=== PATIENT | female | born 1935 | race Caucasian/White ===

== ENCOUNTER → 2019-04-12 | Outpatient (CLI) | payer MEDICARE, OTHER, SELFPAY ==
[2019-04-12 12:14] LABS: Absolute Lymphocyte Count 2.04 X10^3/ul (0.83-4.51); Absolute Neutrophil Count 2.5 X10^3/uL (2.0-7.7); Basophil# 0.03 X10^3/uL; Basophil% 0.5 % (0-1); Eosinophil# 0.31 X10^3/uL; Eosinophils% 5.6 % (0-5); Hematocrit 35.7 % (37-47); Hemoglobin 10.7 g/dl (12.0-15.0); Lymphocyte # 2.04 X10^3/ul (4.0); Lymphocyte % 36.7 % (19-41); Mean Corpuscular Hgb 26.4 pg (27.0-32.0); Mean Corpuscular Volume 87.9 fL (81-99); Mean Platelet Vol. 10.2 fl (6.2-12.0); Monocyte# 0.63 X10^3/uL; Monocyte% 11.3 % (0-10); Neutrophil # 2.53 X10^3/uL (2.7-7.7); Neutrophil % 45.5 % (47-70); Platelet Count 231 K/mm3 (150-450); RBC Distribution Width CV 14.9 % (11.6-14.6); RBC Distribution Width SD 47.2 fl (35.1-43.9); Red Blood Count 4.06 M/mm3 (4.2-5.4); White Blood Count 5.6 K/mm3 (4.4-11.0)
[2019-04-12 12:16] LABS: POSITIVE COUNT NO; POSITIVE DIFFERENTIAL NO; POSITIVE MORPHOLOGY NO
[2019-04-12 12:38] LABS: Hemoglobin A1c 6.7 % (4.2-6.3)
[2019-04-12 12:43] LABS: Vitamin B12 1013 pg/mL (211-911); Vitamin D,25 Hydroxy 16.5 ng/mL (29.95-100.01)
[2019-04-12 12:48] LABS: ALB/GLOB Ratio 0.9 RATIO (0.9-2.4); AST(SGOT) 19 U/L (15-37); Alanine Aminotransfer ALT/SGPT 21 U/L (13-56); Albumin, Serum 3.2 g/dL (3.2-5.0); Alkaline Phosphatase 50 U/L (45-117); Anion Gap 8 (5-15); BUN 13 mg/dL (7-18); BUN/Creat Ratio 14.9 RATIO (10-20); Calcium,Total 9.2 mg/dL (8.5-10.1); Chloride 105 mmol/L (98-107); Cholesterol 224 mg/dL (200); Creatinine, Serum 0.87 mg/dL (0.55-1.02); EST Glomerular Filtration Rate 66 mL/min (>60); Est Glom Filt Rate - Afr Amer 80 mL/min (>60); Ferritin 10 ng/mL (8-252); Free T3 2.6 pg/mL (2.18-3.98); Globulin 3.6 g/dL (2.2-4.2); Glucose 137 mg/dL (74-106); High Density Lipoprotein 74 mg/dL; Iron 34 ug/dL (50-170); Potassium 3.5 mmol/L (3.5-5.1); Protein, Total 6.8 g/dL (6.4-8.2); Sodium Level 141 mmol/L (136-145); T4 Free Direct 0.95 ng/dL (0.76-1.46); Thyroid Stim Hormone (TSH) 2.05 uIU/mL (0.358-3.74); Triglycerides 127 mg/dL; Very Low Density Lipoprotein 25 mg/dL (5-40)
== END | disposition home or self-care (01) ==
LOC: BFHLAB 08:53
PROVIDERS: Family Provider Family Medicine; PCP Family Medicine; Visit Provider Family Medicine
DX: R73.03 Prediabetes (principal); R53.83 Other fatigue; M81.0 Age-related osteoporosis without current pathological fracture; E03.9 Hypothyroidism, unspecified; E78.5 Hyperlipidemia, unspecified; D64.9 Anemia, unspecified; E53.8 Deficiency of other specified B group vitamins; E55.9 Vitamin D deficiency, unspecified
CPT/HCPCS: 36415; 80053; 80061; 82306; 82607; 82728; 83036; 83540; 84439; 84443; 84481; 85025

== ENCOUNTER → 2019-05-18 | Outpatient (CLI) | payer MEDICARE, OTHER, SELFPAY ==
[2019-05-18 12:07] LABS: Absolute Lymphocyte Count 1.82 X10^3/ul (0.83-4.51); Absolute Neutrophil Count 2.6 X10^3/uL (2.0-7.7); Basophil# 0.03 X10^3/uL; Basophil% 0.6 % (0-1); Eosinophil# 0.24 X10^3/uL; Eosinophils% 4.6 % (0-5); Hematocrit 33.3 % (37-47); Hemoglobin 10.3 g/dl (12.0-15.0); Lymphocyte # 1.82 X10^3/ul (4.0); Lymphocyte % 34.7 % (19-41); Mean Corp Hgb Conc 30.9 g/gl (32-36); Mean Corpuscular Hgb 28.3 pg (27.0-32.0); Mean Corpuscular Volume 91.5 fL (81-99); Mean Platelet Vol. 9.9 fl (6.2-12.0); Monocyte# 0.57 X10^3/uL; Monocyte% 10.9 % (0-10); Neutrophil # 2.59 X10^3/uL (2.7-7.7); Neutrophil % 49.2 % (47-70); POSITIVE COUNT NO; POSITIVE DIFFERENTIAL NO; POSITIVE MORPHOLOGY NO; Platelet Count 234 K/mm3 (150-450); RBC Distribution Width CV 19.1 % (11.6-14.6); RBC Distribution Width SD 64.3 fl (35.1-43.9); Red Blood Count 3.64 M/mm3 (4.2-5.4); White Blood Count 5.3 K/mm3 (4.4-11.0)
[2019-05-18 12:20] LABS: Iron 35 ug/dL (50-170)
== END | disposition home or self-care (01) ==
LOC: LAB.FUTURE 08:40
PROVIDERS: Family Provider Family Medicine; PCP Family Medicine; Visit Provider Family Medicine
DX: E61.1 Iron deficiency (principal)
CPT/HCPCS: 36415; 83540; 85025

== ENCOUNTER 2020-05-31 10:13 | Inpatient (IN) | payer MEDICARE, OTHER, SELFPAY ==
[2020-05-31] VITALS (9 sets, daily range): BP systolic 140–153; BP diastolic 68–91; PULSE 60–73; RESP 14–20; TEMP 36.4–36.7; O2SAT 94–100; BMI 37.8; BMI 34.7
--- NOTE | 2020-05-31 10:27 | EKG12_ITS ---
Test Reason : FALL Blood Pressure : / mmHG Vent. Rate : 070 BPM Atrial Rate : 070 BPM P-R Int : 194 ms QRS Dur : 112 ms QT Int : 462 ms P-R-T Axes : 035 -44 060 degrees QTc Int : 498 ms Normal sinus rhythm Left axis deviation Septal infarct , age undetermined Abnormal ECG Confirmed by JULIETTE STOKES ([id number]), greeting card editor ANETTE RODRIGUEZ ([id number]) on 06/02/2020 2:06:32 PM Referred By: AP Confirmed By:JULIETTE STOKES
--- NOTE | 2020-05-31 10:28 | RAD_ITS ---
STUDY: X-RAY - PELVIS AND LEFT HIP REASON FOR EXAM: Female, 84 years old. PATIENT FELL. PAIN IN LEFT HIP TECHNIQUE: 3 views of the pelvis and hip. COMPARISON: None. FINDINGS: There is a non-specific bowel gas pattern. Normal visualized soft tissue structures. Normal bilateral iliac wings, sacroiliac joints and visualized sacrum. Normal bilateral superior and inferior pubic rami. Normal pubic symphysis. Normal bilateral ischial tuberosities. Curvilinear acute fracture left femoral neck extending to the left femoral intertrochanteric bone near the lesser trochanter. Normal acetabulum. Normal hip joint. RAD/HIP, UNI W/ Pelvis 2-3 Views IMPRESSION: Acute curvilinear fracture of the left femoral neck extending down to the left femoral intertrochanteric bone near the lesser trochanter. Electronically Signed: Leobardo Cardoza MD at 11:35 EDT , Service support ,
--- NOTE | 2020-05-31 10:29 | ED.VIS.FALL ---
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 She was walking on the sidewalk in her neighborhood she stubbed her toe over the sidewalk tripped and fell on her left side. She did not have any prodromal symptoms and she did not hit her head or lose consciousness. She is having severe left hip pain. Denies any other areas of injury. She is unable to ambulate. She is not on anticoagulation. Tetanus Immunization: Unknown Prior similar symptoms: No Recent Illness/Hospitalization: No <Yemi Mclean - Last Filed: 05/31/20 12:08> <Dg Olsen - Last Filed: 05/31/20 13:42> Chief Complaint: Fall Past Medical History Past Medical History: - - HTN Lives: With Family Smoking Status: Never smoker Alcohol: None Drugs: None <Yemi Mclean - Last Filed: 05/31/20 12:08> - Family History Maternal Family History: Reports: No pertinent history Paternal Family History: Reports: No pertinent history <Dg Olsen - Last Filed: 05/31/20 13:42> - Allergies and Home Meds Allergies/Adverse Reactions: Allergies Penicillins Allergy (Verified 05/31/20 13:03) Rash Review of Systems All systems negative except as indicated General: Denies: Chills, Fever, Sweats Eyes: Denies: Visual changes - bilaterally, Diplopia ENT: Denies: Rhinorrhea, Sore throat Cardiovascular: Denies: Chest pain, Palpitations Respiratory: Denies: Dyspnea, Cough, Dyspnea on exertion Gastrointestinal: Denies: Abdominal pain, Nausea, Vomiting, Diarrhea, Melena, Hematochezia Genitourinary: Denies: Dysuria, Hematuria, Frequency Musculoskeletal: Reports: Swelling, Extremity Pain. Denies: Back pain Skin: Reports: Abrasions. Denies: Rash, Abscess, Wounds Neurological: Denies: Headache, Weakness, Numbness <Yemi Mclean - Last Filed: 05/31/20 12:08> Physical Exam Vital Signs/Narrative: Vital Signs Temp Pulse Resp BP Pulse Ox 05/31/20 10:14 98.1 F 73 20 H 144/91 H 94 Inital Vital Signs reviewed: Yes General: Well nourished, Well developed Head: Normocephalic, Atraumatic Eyes: Perrl, EOMI ENT: TM's clear, No hemotympanum or drainage, No trauma Neck: Nontender, Full ROM Cardiovascular: Regular rate, Regular rhythm, No murmurs Respiratory: No distress, CTA bilaterally, Chest nontender Abdomen: Soft, Nontender, Nondistended, Normal bowel sounds Back: Nontender Skin: - - Patient has a shortened and rotated left lower extremity. Diffusely tender around the hip. Skin is intact. No redness or bruising. No bony tenderness over the femur or knee tibia/fibula ankle or foot. DP and PT pulse and sensation normal. Neurological: Alert, Oriented x3, Cranial nerves II-XII grossly intact, Normal Strength, Normal Sensation Psychological: Normal affect, Normal Mood <Yemi Mclean - Last Filed: 05/31/20 12:08> Vital Signs/Narrative: Vital Signs Temp Pulse Resp BP Pulse Ox 05/31/20 12:00 63 14 148/68 H 96 05/31/20 10:14 98.1 F 73 20 H 144/91 H 94 <Dg Olsen - Last Filed: 05/31/20 13:42> Diagnostic/Tx/Re-eval Chest X-Ray - ED: 1 View, Read by ED Physician, Read by Radiologist, No Acute Disease - Rhythm Strip Rhythm Strip: Sinus Rhythm Rate: 70 Ectopy: None - EKG Initial EKG Interpretation: Sinus Rhythm, No Acute Injury Pattern Prior: No Prior - Medical Decision Making On arrival patient was taken off of her backboard besides her left hip there were no other injuries noted she had no spinal tenderness of her cervical thoracic or lumbar spine abdomen soft and nontender chest was nontender head and neck no signs of injury. She was treated with morphine. Her laboratory work-up was unremarkable. Chest x-ray is unremarkable as well. He demonstrated that she has an intertrochanteric left hip fracture. I spoke with , commended admission to medicine, obtain a CT scan of her hip, and will be n.p.o. after midnight. I spoke with the hospitalist who agreed to admit onto hospitalist service. Patient was given a second dose of morphine for pain. I advised her and her family of findings and they are agreeable with our plan of care and she is hemodynamically stable. <Yemi Mclean - Last Filed: 05/31/20 12:08> - Medical Decision Making Patient appears well nontoxic. Seen and evaluated independently with physician's life science research assistant. Evidence of hip fracture on x-ray. Strong palpable pulses with compressible compartments. Sensation intact. Patient was given pain medication. Spoke with orthopedic surgeon on-call who will accept the patient to her service. Lab work within normal limits. EKG nonischemic. Patient admitted in stable condition. <Dg Olsen - Last Filed: 05/31/20 13:42> ED Disposition <Yemi Mclean - Last Filed: 05/31/20 12:08> <Dg Olsen - Last Filed: 05/31/20 13:42> - Plan for ED Patient: Disposition: Acute Care Hospital [facility] Diagnosis: Fracture of femoral neck, left, HTN (hypertension)
[2020-05-31] MEDS: Ondansetron 4 MG/2 ML Vial IV (10:32)
[2020-05-31] MEDS: Morphine 4 MG/ML Syringe IV ×2 (10:33→12:07)
--- NOTE | 2020-05-31 10:50 | RAD_ITS ---
STUDY: X-RAY CHEST REASON FOR EXAM: Female, 84 years old. PATIENT FELL. PAIN IN LEFT HIP. TECHNIQUE: AP portable view. COMPARISON: 06/14/2016. FINDINGS: Pulmonary hypoinflation. Calcified granuloma in the left upper lobe. No suspicious infiltrates. There is no demonstrated pleural abnormality. Normal size heart. Calcified nodes in both bryant. Mediastinal widening is most likely from supine portable technique with limited inspiratory effort. Normal visualized pulmonary arteries. Mild atherosclerotic calcifications along the thoracic aorta. Normal visualized thoracic spine. Normal visualized ribs, clavicles, and shoulders. There is no demonstrated abnormality of the visualized soft tissue structures of the upper abdomen. RAD/Chest 1 View (Portable) IMPRESSION: 1. No acute cardiopulmonary pathology given the limited inspiratory effort. 2. No significant interval change when compared to 06/14/2016. Electronically Signed: Leobardo Cardoza MD at 11:26 EDT , Service support ,
[2020-05-31 10:51] LABS: Absolute Lymphocyte Count 2.63 X10^3/uL (0.83-4.51); Absolute Neutrophil Count 3.5 X10^3/uL (2.0-7.7); Basophil# 0.06 X10^3/uL; Basophil% 0.9 % (0-1); Eosinophil# 0.24 X10^3/uL; Eosinophils% 3.4 % (0-5); Hematocrit 39.8 % (37-47); Hemoglobin 12.7 g/dL (12.0-15.0); Lymphocyte # 2.63 X10^3/ul (4.0); Lymphocyte % 37.7 % (19-41); Mean Corp Hgb Conc 31.9 g/dL (32-36); Mean Corpuscular Hgb 30.8 pg (27.0-32.0); Mean Corpuscular Volume 96.6 fL (81-99); Mean Platelet Vol. 10.6 fl (6.2-12.0); Monocyte# 0.55 X10^3/uL; Monocyte% 7.9 % (0-10); NRBC Flagged by Analyzer 0 % (0-5); Neutrophil # 3.46 X10^3/uL (2.7-7.7); Neutrophil % 49.5 % (47-70); Platelet Count 205 K/mm3 (150-450); RBC Distribution Width CV 13.6 % (11.6-14.6); RBC Distribution Width SD 47.8 fl (35.1-43.9); Red Blood Count 4.12 M/mm3 (4.2-5.4)
[2020-05-31 11:04] LABS: Prothrombin Time (Protime)PT. 12.8 SECONDS (11.7-14.9)
[2020-05-31 11:05] LABS: Partial Thromboplast Time 27.6 Seconds (24.1-36.2)
[2020-05-31 11:07] LABS: Anion Gap 6 (5-15); BUN 12 mg/dL (7-18); BUN/Creat Ratio 13.2 RATIO (10-20); Calcium,Total 9.4 mg/dL (8.5-10.1); Chloride 103 mmol/L (98-107); Creatinine, Serum 0.91 mg/dL (0.55-1.02); EST Glomerular Filtration Rate 63 mL/min (>60); Est Glom Filt Rate - Afr Amer 76 mL/min (>60); Estimated Creatinine Clearance 35.75 ml/min; Glucose 200 mg/dL (74-106); Potassium 3.3 mmol/L (3.5-5.1); Sodium Level 138 mmol/L (136-145)
--- NOTE | 2020-05-31 12:04 | CT_ITS ---
STUDY: CT LEFT HIP WITHOUT CONTRAST REASON FOR EXAM: Female, 84 years old. LT HIP FX RADIATION DOSAGE (If Supplied By Facility): CTDIvol = ( 34.19 ) mGy, DLP = ( 1129.70 ) mGycm TECHNIQUE: Transaxial imaging of the left hip was performed without oral contrast, and without intravenous administration of contrast material. 05/31/2020 Individualized dose optimization techniques were used for this CT. COMPARISON: None. FINDINGS: Castanon catheter decompresses urinary bladder. Normal visualized small intestine. Normal visualized colon. There is no pelvic fluid. There is no pelvic mass lesion or lymphadenopathy. There is atrophy of the uterus. There is diffuse atherosclerotic calcification of the pelvic arteries. Normal abdominal wall. The visualized sacrum and left sacroiliac joint are unremarkable. The visualized left iliac crest is intact. The left femoral head is normally aligned with the acetabulum. There is a transverse fracture of the left subcapital femoral neck with widening of the fracture line (3 mm) along the medial margin (image 38 series 602). A longitudinal fracture component extends inferiorly to just above the base of the lesser trochanter (image 37 series 602). The remainder of the left femur is intact. CT/Extremity Lower without Contra IMPRESSION: 1. Left femoral neck fracture, as above. Electronically Signed: John Franco MD ([place]) at 12:58 EDT , Service support ,
[2020-05-31] MEDS: Diphth,Pertuss(Acell),Tet Vac 0.5 ML Vial IM (12:08)
--- NOTE | 2020-05-31 12:23 | PCM.HP.STD ---
Problem List (1) Hyperglycemia Status: Acute (2) Congestive heart failure (CHF) Status: Chronic (3) Gout Status: Chronic (4) Fracture of femoral neck, left Status: Acute (5) HTN (hypertension) Status: Chronic History of Present Illness Date of Admission: 05/31/20 Chief Complaint: Fall, left hip pain. The patient is a 84 year old F with past medical history as mentioned above presented to the emergency room because of fall and left hip pain. This morning, she was working in her garden, turned around, lost her balance and she fell on her left side. Immediately, she started having left hip pain, sharp pain, 8 out of 10 in severity, aggravated by any movement, no relieving factor and no associated symptoms. She denied dizziness, lightheadedness, loss of consciousness or head trauma. In the emergency department, her vital signs are stable. Her routine blood work was remarkable for potassium of 3.3 and blood glucose of 200. EKG revealed normal sinus rhythm, normal AK table, normal QRS, normal QTC and no evidence of ischemic changes or cardiac arrhythmias. Chest x-ray revealed cardiomegaly, no acute findings. X-ray of the pelvis and left hip revealed acute fracture of the left femoral neck extending down to the left femoral intertrochanteric bone. She is being admitted for acute traumatic left femoral neck fracture for surgical repair. Past Medical History Past Medical History (Chronic Problems): Chronic Problems Congestive heart failure (CHF) (Chronic) Gout (Chronic) HTN (hypertension) (Chronic) Allergies No Known Allergies Allergy (Verified 05/31/20 10:28) Home Medications: Ambulatory Orders Medication Instructions Recorded Aspirin [Aspirin, Baby] 81 mg PO DAILY@0800 05/31/20 Atenolol [Tenormin] 50 mg PO BID 05/31/20 Lisinopril/Hydrochlorothiazide 1 tab PO DAILY 05/31/20 [Lisinopril-Hctz 20-12.5 mg Tab] Surgical History: - - Back surgery. Psychiatric History: No pertinent psych hx OCCUPATIONAL HEALTH SPECIALIST History: No pertinent OCCUPATIONAL HEALTH SPECIALIST history Lives: Alone Smoking Status: Never smoker Alcohol: None Drugs: None - *Family History Maternal History Items: No pertinent history Paternal History Items: No pertinent history Review of Systems Constitutional: Denies: Anorexia, Chills, Fever, Weakness Eyes: Denies: Blurred vision, Double vision, Drainage HEENT: Denies: Difficulty Hearing, Ear Pain, Eye Pain, Nasal Congestion, Sore Throat Cardiovascular: Denies: Chest Pain, Chest Pressure, Heaviness, Light Headedness, Palpitations, Syncope Respiratory: Denies: Cough, Pleuritic Pain, Shortness of Breath, Sputum production, Wheezing Gastrointestinal: Denies: Abdominal Pain, Constipation, Diarrhea, Nausea, Vomiting Genitourinary: Denies: Dysuria, Frequency, Hematuria Musculoskeletal: Reports: Joint Pain. Denies: Arm Pain, Back Pain, Foot Pain Skin: Denies: Dryness, Rash Neurological: Denies: Balance problems, Double vision, Change in Speech, Slurred speech, Confusion, Headaches, Incoordination, Numbness Psychiatric: Denies: Anxiety, Depression Endocrine: Denies: Change in Body Habitus, Polydipsia, Polyuria VTE Information - Inpt Only VTE Present on Admission: No VTE Mechan Device Prophylaxis: None VTE Pharm Prophylaxis ordered?: Yes Patient Problems: Active and Suspected Problems Hyperglycemia (Acute) Fracture of femoral neck, left (Acute) - Physical Exam Vitals/I&O's: Vital Signs Temp Pulse Resp BP Pulse Ox 98.1 F 61 20 H 150/85 H 94 05/31/20 12:17 05/31/20 12:17 05/31/20 12:17 05/31/20 12:17 05/31/20 12:17 Oxygen Flow Rate (L/min) 2 Oxygen Delivery Method Nasal Cannula Weight: 207 lb 0.225 oz Body Mass Index (BMI) 37.8 General: Alert, Oriented x3, Cooperative, No apparent distress HEENT: Atraumatic, PERRLA, EOMI, Normocephalic Oral: Moist Mucosa, No Gingival or Mucosal Lesions/ Ulcerations Neck: Supple, No JVD, Negative Carotid Bruits, Trachea Midline, Thyroid Normal Size and Texture Lungs: Clear to auscultation, No wheeze, No rales, Diminished Cardiovascular: Regular rate, Regular Rhythm, Normal S1, Normal S2, PMI Normal Abdomen: Bowel Sounds Present, Soft, Non Tender, Non-Distended, No Hepato-splenomegaly, Obese Extremities: No clubbing, No cyanosis, No edema Skin: No rashes, No breakdown Lymphatic: No Cervical, Supraclavicular, or Inguinal Adenopathy Neurological: Cranial nerves II-XII grossly intact, Motor Exam 5/5 strength throughout Psych/Mental Status: Normal Affect, Appropriate, Alert and oriented to time, place, person, mood and affect Laboratory Results 05/31/20 10:15: WBC 7.0, RBC 4.12 L, Hgb 12.7, Hct 39.8, MCV 96.6, MCH 30.8, MCHC 31.9 L, RDW Std Deviation 47.8 H, RDW Coeff of Do 13.6, Plt Count 205, MPV 10.6, Immature Gran % (Auto) 0.600, Neut % (Auto) 49.5, Lymph % (Auto) 37.7, Wood % (Auto) 7.9, Eos % (Auto) 3.4, Baso % (Auto) 0.9, Absolute Neuts (auto) 3.5, Absolute Lymphs (auto) 2.63, Nucleated RBC % 0 05/31/20 10:15: PT 12.8, INR 1.0, APTT 27.6 05/31/20 10:15: Sodium 138, Potassium 3.3 L, Chloride 103, Carbon Dioxide 29.0, Anion Gap 6, BUN 12, Creatinine 0.91, Estim Creat Clear Calc 35.75, Est GFR (MDRD) Af Amer 76, Est GFR (MDRD) Non-Af 63, BUN/Creatinine Ratio 13.2, Glucose 200 H, Calcium 9.4 05/31/20 10:40: Blood Type O POSITIVE, Antibody Screen NEGATIVE 05/31/20 12:00: COVID-19 ([facility]) Pending Clinical Impression(s) from Imaging Studies Hip/Pelvis X-Ray 05/31/20 10:28 IMPRESSION: Acute curvilinear fracture of the left femoral neck extending down to the left femoral intertrochanteric bone near the lesser trochanter. Electronically Signed: Leobardo Cardoza MD at 11:35 EDT , Service support , Chest X-Ray 05/31/20 10:50 IMPRESSION: 1. No acute cardiopulmonary pathology given the limited inspiratory effort. 2. No significant interval change when compared to 06/14/2016. Electronically Signed: Leobardo Cardoza MD at 11:26 EDT , Service support , Assessment/Plan All Active Problems Hyperglycemia (Acute) Fracture of femoral neck, left (Acute) This is an 84 years old female patient presented to the emergency room because of fall followed by left hip pain, found to have acute traumatic left femoral neck fracture and she is being admitted for treatment. #1 acute traumatic left femoral neck fracture: Due to mechanical fall. No prodromal symptoms. X-ray of the pelvis and left hip reviewed. Plan: Admit to [facility] floor, telemetry, complete bedrest, IV morphine PRN for pain, OxyIR PRN for pain, gentle IV fluids for hydration, orthopedic surgery consult, insert Castanon catheter, input output chart, repeat CBC and BMP after tomorrow morning, PT OT evaluation and treatment when appropriate. #2 preoperative evaluation: This is an 84 years old female patient with past medical history as above, lives alone, able to do her daily activities without significant restrictions, denied exertional shortness of breath or chest pain. She mentioned that she does have a history of congestive heart failure but she has not followed with cardiology. Her EKG reviewed as above the chest x-ray showed cardiomegaly, no acute findings. Routine blood work reviewed. Based on her age, past medical history, serum creatinine and functional status, her estimated risk for perioperative myocardial infarction or cardiac arrest is 0.23%. Based on ACS NSQIP surgical risk is critical, this patient's estimated risk for serious complications is below average. Patient had a history of congestive heart failure which is compensated and stable at this time, I think we need to do an echocardiogram before surgery. Plan: 2D echocardiogram, we can proceed with surgery after 2D echocardiogram results. #3 hyperglycemia: Without history of diabetes. Blood sugar admission was 200 mg/dL. Plan: Accu-Cheks q. before meals at bedtime, hemoglobin A1c, insulin sliding scale. #4 hypertension: Blood pressure stable, continue atenolol, lisinopril and HCTZ. #5 gout: Stable, no complaints. She is not on any treatment. #6 history of congestive heart failure: Clinically stable, compensated. Patient mentioned that she has been taking Lasix in addition to lisinopril and atenolol. Chest x-ray revealed cardiomegaly, no acute CHF. Plan for 2D echocardiogram as above, continue home medications. #7 DVT prophylaxis, subcu Lovenox. This note was generated with [employer] dictation software. It may contain incorrect words, spelling, and punctuation that were not noted in checking the note before signing. Inpatient E&M: 18900 Init Hosp L3
--- NOTE | 2020-05-31 13:22 | ECHOD_ITS ---
Reason For Study: Pre-op clearance Procedure This was a 2D Doppler, Color Flow transthoracic echocardiogram. Patient scanned supine due to hip fracture. Exam performed portable in patient room. Left Ventricle Normal size and thickness. The estimated ejection fraction is 65 %. Stage 1 diastolic dysfunction. No regional wall motion abnormalities noted. Right Ventricle Normal size and thickness. Normal systolic function. Atria Normal left atrium. Normal right atrium. Normal atrial septum. Mitral Valve Mild diffuse mitral valve thickening. Severe mitral annular calcification extending into the posterior leaflet. Mild (1+) mitral valve insufficiency. Tricuspid Valve Normal tricuspid valve. Mild (1+) tricuspid valve insufficiency. Right ventricular systolic pressure estimated to be 40 mmHg. Mild pulmonary hypertension. Aortic Valve Trisinus/trileaflet aortic valve. Mild focal aortic valve thickening. Mild aortic stenosis. Pulmonic Valve Normal pulmonic valve. Trivial pulmonic valve insufficiency. Great Vessels Normal aortic root. Normal arch. Normal inferior vena cava. Inferior vena cava collapse with sniff. Pericardium/Pleural No pericardial effusion. MMode/2D Measurements & Calculations LVIDd: 4.5 cm IVSd: 0.98 cm Ao root diam: 3.6 cm LVIDs: 2.5 cm LVPWd: 1.2 cm RVDd: 3.5 cm FS: 43.9 % LAV(MOD-bp): 54.2 ml LA A4 area: 17.4 cm2 LA dimension(2D): 4.1 cm LAV(MOD-bp) Indexed: 29.1 ml/m2 LAV(MOD-sp2): 55.3 ml LAV(MOD-sp4): 47.8 ml RA A4 area: 14.7 cm2 Doppler Measurements & Calculations MV E max girish: 113.9 cm/sec Lat Peak E' Girish: 6.5 cm/sec Med Peak E' Girish: 4.6 cm/sec MV A max girish: 129.0 cm/sec E/E' lat: 17.4 E/E' med: 24.8 MV E/A: 0.88 Ao V2 max: 188.6 cm/sec LV V1 max: 133.1 cm/sec PA V2 max: 96.5 cm/sec Ao max P.2 mmHg LV V1 max P.1 mmHg TR max girish: 281.1 cm/sec TR max P.7 mmHg Interpretation Summary The estimated ejection fraction is 65 %. Stage 1 diastolic dysfunction. Mild (1+) mitral valve insufficiency. Mild (1+) tricuspid valve insufficiency. Right ventricular systolic pressure estimated to be 40 mmHg. Mild pulmonary hypertension. Mild aortic stenosis. Compared to echo report dated 05/12/2008, LV function has remained the same, but RVSP is increased from 25 to 40 mmHg. Ordering Physician: Katie Burk Performed By: Mis Mendoza RDCS
--- NOTE | 2020-05-31 13:27 | NURSING ---
notified dr bach of pt admit
[2020-05-31 13:31] LABS: Probe Check PASS; Specimen Processing Control PASS
[2020-05-31 13:55] LABS: Hemoglobin A1c 7.3 % (3.8-5.6)
[2020-05-31] MEDS: 0.9% Normal Saline 1,000 ML 75 ML IV (13:56)
--- NOTE | 2020-05-31 14:12 | NURSING ---
notified dr greene that eco can not be done today. called nursing supervisor public health nursing and he stated that eco could be done if dr greene would call cardiology general operations agent and see if cardiology could have eco done. dr ledesma notified that to have eco done before surgery radio electrician general operations agent would have to be called. dr greene stated he would not call cardiology general operations agent to notify dr bach and is she wanted eco done she would have to call cardiology. dr haywood notified and she was going to call cardiology and dr greene about having eco done.
[2020-05-31] MEDS: Morphine 2 MG/ML Syringe IV (15:55)
[2020-05-31] MEDS: Insulin Lispro 100 UNIT/ML INSULN.PEN SC ×2 (16:02→22:06)
[2020-05-31 16:16] LABS: Bedside Glucose 155 mg/dL (70-110)
--- NOTE | 2020-05-31 21:19 | CON.PCM_ITS ---
Problem List (1) Fracture of femoral neck, left Status: Acute Qualifiers: Encounter type: initial encounter Fracture type: closed Qualified Code(s): S72.002A - Fracture of unspecified part of neck of left femur, initial encounter for closed fracture Reason for Consult Date of Consultation: 05/31/20 Reason for Consultation: left hip pain History of Present Illness: The patient is a 84 year old FPatient stated that she is ambulator at home without assistance and was trimming michael bushes and fell onto her left hip. Brought to ER where xrays taken show nondisplaced left femoral neck fx. Ortho consulted and noted frx line extending to lesser and CT ordered. Denies shortness of breath chest pain fevers chills or other constitutional symptoms. Denies antecedent sob, dizziness, light headed, etc- missed her footing and fell. States pain localized to her left hip and left wrist. Patient states she had a bone density scan which shows she is osteoporotic. Please see chart for medical comorbidities including hypertension a history of CHF. Patient states she has not seen a doctor in years and takes care of herself.[] Past Medical History Past Medical History (Chronic Problems): Chronic Problems Congestive heart failure (CHF) (Chronic) Gout (Chronic) HTN (hypertension) (Chronic) Allergies Penicillins Allergy (Verified 05/31/20 13:03) Rash Home Medications: Ambulatory Orders Medication Instructions Recorded Allopurinol 300 mg PO DAILY 05/31/20 Aspirin [Aspirin, Baby] 81 mg PO DAILY@0800 05/31/20 Atenolol [Tenormin] 50 mg PO BID 05/31/20 Lisinopril/Hydrochlorothiazide 1 tab PO DAILY 05/31/20 [Lisinopril-Hctz 20-12.5 mg Tab] Apixaban [Eliquis] 5 mg PO BID #90 tab 06/04/20 Oxycodone [Oxyir] 5 mg PO Q6H PRN PRN 5 Days #20 tab 06/04/20 Senna/Docusate Sodium [Senokot-S] 2 tab PO BID PRN PRN #1 tab 06/04/20 metFORMIN HCl [Glucophage] 500 mg PO BIDCM #90 tab 06/04/20 Surgical History: - - Back surgery. Psychiatric History: No pertinent psych hx [employer]UDIES History: No pertinent [employer] history Lives: Alone Smoking Status: Never smoker Alcohol: None Drugs: None - *Family History Maternal History Items: No pertinent history Paternal History Items: No pertinent history Review of Systems Constitutional: Denies: Chills, Fever, Weight Change HEENT: Denies: Head Aches, Sinus Congestion, Sinus Drainage Cardiovascular: Denies: Chest Pain, Palpitations Respiratory: Denies: Cough, Shortness of breath at rest, Sputum production Gastrointestinal: Denies: Abdominal Pain, Nausea, Vomiting Genitourinary: Denies: Dysuria Musculoskeletal: Reports: Joint Pain, Joint Tenderness Skin: Denies: Rash, Wounds Neurological: Denies: Numbness, Tingling, Focal weakness Psychiatric: Denies: Anxiety, Depression, Homicidal Ideations, Suicidal Ideations Hematologic/ Lymphatic: Denies: Easy Bruising, Easy Bleeding - Physical Exam Vitals/I&O's: Vital Signs Temp Pulse Resp BP Pulse Ox 97.7 F L 60 18 140/70 H 99 05/31/20 16:04 05/31/20 17:46 05/31/20 18:56 05/31/20 16:04 05/31/20 18:56 Oxygen Flow Rate (L/min) 2.5 Oxygen Delivery Method Nasal Cannula Weight: 190 lb 0.225 oz Body Mass Index (BMI) 34.7 Intake and Output for Last 24 Hours 05/29/20 05/30/20 05/31/20 23:59 23:59 23:59 Intake Total 100 / 100 Output Total 500 / 500 Balance -400 / -400 General: Alert, Oriented x3, Cooperative HEENT: Atraumatic, PERRLA, EOMI, Normocephalic Neck: Supple, No JVD, Negative Carotid Bruits Lungs: Clear to auscultation, Normal air movement Cardiovascular: Regular rate, No murmurs Abdomen: Bowel Sounds Present, Soft, Non Tender Extremities: No edema, Capillary Refill Less than 3 Seconds Skin: No rashes, No breakdown Musculoskeletal: Tenderness - Left hip tender to palpation, bilateral lower extremities sensation grossly intact active range of motion passive range of motion ankle intact, sensation grossly intact, compartment soft, negative Homans, secondary survey negative, Neurological: Cranial nerves II-XII grossly intact Psych/Mental Status: Normal Affect, Appropriate Laboratory Results 05/31/20 10:15: WBC 7.0, RBC 4.12 L, Hgb 12.7, Hct 39.8, MCV 96.6, MCH 30.8, MCHC 31.9 L, RDW Std Deviation 47.8 H, RDW Coeff of Do 13.6, Plt Count 205, MPV 10.6, Immature Gran % (Auto) 0.600, Neut % (Auto) 49.5, Lymph % (Auto) 37.7, [place] % (Auto) 7.9, Eos % (Auto) 3.4, Baso % (Auto) 0.9, Absolute Neuts (auto) 3.5, Absolute Lymphs (auto) 2.63, Nucleated RBC % 0 05/31/20 10:15: PT 12.8, INR 1.0, APTT 27.6 05/31/20 10:15: Sodium 138, Potassium 3.3 L, Chloride 103, Carbon Dioxide 29.0, Anion Gap 6, BUN 12, Creatinine 0.91, Estim Creat Clear Calc 35.75, Est GFR (MDRD) Af Amer 76, Est GFR (MDRD) Non-Af 63, BUN/Creatinine Ratio 13.2, Glucose 200 H, Calcium 9.4 05/31/20 10:15: Hemoglobin A1c 7.3 H 05/31/20 10:40: Blood Type O POSITIVE, Antibody Screen NEGATIVE 05/31/20 12:00: COVID-19 ([facility]) Negative 05/31/20 16:00: POC Glucose 155 H Current Medications Acetaminophen (Tylenol) 650 mg PO Q6H PRN PRN PRN Reason: Pain Score 1-10/Temp > 100.7 F Aspirin (Aspirin, Baby) 81 mg PO DAILY@0800 [facility] Atenolol (Tenormin (Beta Geovany)) 50 mg PO BID [facility] Dextrose (D50w Syringe) 0 gm IV X1 PRN; Protocol PRN Reason: Hypoglycemia Enoxaparin Sodium (Lovenox) 40 mg SC DAILY@0600 [facility] Glucagon () 1 mg IM .X1 PRN PRN Reason: Hypoglycemia Hydrochlorothiazide () 12.5 mg PO DAILY [facility] Sodium Chloride () 250 mls @ 15 mls/hr IV .[id number] PRN PRN Reason: Saline Flush Sodium Chloride () 250 mls @ 15 mls/hr IV .[id number] PRN PRN Reason: Additional IVPB Infusion Sodium Chloride () 1,000 mls @ 75 mls/hr IV .[id number] [facility] Last Admin: 05/31/20 13:56 Dose: 75 mls/hr Documented by: Insulin Human Lispro (Humalog Kwikpen (Bkc)) 0 unit SC ACHS [facility]; Protocol Last Admin: 05/31/20 16:02 Dose: 1 units Documented by: Lisinopril (Zestril) 20 mg PO DAILY [facility] Morphine Sulfate () 2 mg IV Q3H PRN PRN PRN Reason: Pain Score 6-10/10 Last Admin: 05/31/20 15:55 Dose: 2 mg Documented by: Ondansetron HCl (Zofran) 4 mg IV Q8H PRN PRN PRN Reason: NAUSEA/VOMITING Oxycodone HCl (Oxyir) 5 mg PO Q4H PRN PRN PRN Reason: Pain Score 4-5/10 Senna/Docusate Sodium (Senokot-S, Raeann-Colace) 2 tablet PO BID PRN PRN PRN Reason: Constipation Sodium Chloride () 10 - 40 ml IV UD PRN PRN Reason: SALINE FLUSH Zolpidem Tartrate (Ambien (Generic)) 5 mg PO QHS PRN PRN PRN Reason: INSOMNIA Assessment/Plan All Active Problems Type 2 diabetes mellitus (Acute) Fracture of femoral neck, left (Acute) Patient has a nondisplaced femoral neck with vertical split to lesser X-rays and CT confirmed femoral neck fracture nondisplaced with vertical fracture to the lesser trochanter Patient slated for a DHS of the left hip tomorrow, repair as indicated Risk benefits and alternatives were discussed with patient. Risk including but not limited to blood loss, blood clot, infection, neurovascular, failure procedure, loss of life and loss of limb. Patient is aware would like proceed with left hip dynamic hip screw fixation. All questions answered. Patient in agreement of plan. Toradol okay ancef 2g octor, aware of pcn allergy Power of vending machine refiller are on their way /they are not present today Cardiology consulted Hospitalist evaluated patient stated 2D echo prior to surgery , hence cardiology consult Patient is slated to go on Tuesday at 1pm pending tire classifier evaluation Call with increased pain numbness tingling further issues arise or If concerns about patient or disposition change [phone] This note was generated with [employer] software. It may contain incorrect words, spelling, and punctuation that were not noted in checking the note before signing.
[2020-05-31] MEDS: oxyCODONE 5 MG Tablet PO (22:02)
[2020-05-31] MEDS: Acetaminophen 325 MG Tablet 650 MG PO (22:02)
[2020-05-31] MEDS: Atenolol 50 MG Tablet PO (22:02)
[2020-05-31 22:21] LABS: Bedside Glucose 159 mg/dL (70-110)
--- NOTE | 2020-05-31 22:34 | NURSING ---
Per patient's request called son Patric to update status of surgery after Dr. Lozada saw her. He will be here in the morning.
[2020-06-01] VITALS (16 sets, daily range): BP systolic 132–163; BP diastolic 70–100; PULSE 62–124; RESP 16–20; TEMP 36.2–36.7; O2SAT 93–100; BMI 34.7
[2020-06-01] MEDS: Morphine 2 MG/ML Syringe IV ×2 (02:21→07:02)
[2020-06-01] MEDS: 0.9% Saline Lock 10 ML Syringe IV ×3 (02:21→20:17)
[2020-06-01] MEDS: 0.9% Normal Saline 1,000 ML 75 ML IV ×2 (02:23→20:19)
[2020-06-01 07:10] LABS: Bedside Glucose 184 mg/dL (70-110)
[2020-06-01 07:17] LABS: Anion Gap 6 (5-15); BUN 9 mg/dL (7-18); BUN/Creat Ratio 14.4 RATIO (10-20); Calcium,Total 8.5 mg/dL (8.5-10.1); Chloride 103 mmol/L (98-107); Creatinine, Serum 0.63 mg/dL (0.55-1.02); EST Glomerular Filtration Rate 96 mL/min (>60); Est Glom Filt Rate - Afr Amer 116 mL/min (>60); Estimated Creatinine Clearance 32.53 ml/min; Glucose 154 mg/dL (74-106); Potassium 3.8 mmol/L (3.5-5.1); Sodium Level 140 mmol/L (136-145)
[2020-06-01] MEDS: hydroCHLOROthiazide 12.5mg 12.5 MG PO (08:02)
[2020-06-01] MEDS: Lisinopril 20 MG Tablet PO (08:02)
[2020-06-01] MEDS: Atenolol 50 MG Tablet PO ×2 (08:03→22:39)
[2020-06-01] MEDS: Aspirin 81 MG TAB.CHEW PO (08:03)
--- NOTE | 2020-06-01 08:20 | PCM.PROGNOTE ---
Patient Problems: Active and Suspected Problems Hyperglycemia (Acute) Fracture of femoral neck, left (Acute) Subjective: Chief complaint: Follow-up after admission for acute traumatic left femoral neck fracture. Patient seen and examined. No acute events overnight. Today, she mentioned her left hip pain is well controlled with IV morphine. Denied any other complaints. Today, she informed me that she saw Dr. Singh for congestive heart failure and on 7 to 8 years ago and she had stress test at that time. Her vital signs are stable. - Physical Exam Vitals/I&O's: Vital Signs Temp Pulse Resp BP Pulse Ox 98.1 F 124 H 18 147/100 H 98 06/01/20 04:30 06/01/20 07:00 06/01/20 04:30 06/01/20 04:30 06/01/20 04:30 Oxygen Flow Rate (L/min) 2 Oxygen Delivery Method Nasal Cannula Weight: 190 lb 0.225 oz Body Mass Index (BMI) 34.7 Intake and Output for Last 24 Hours 05/30/20 05/31/20 06/01/20 23:59 23:59 23:59 Intake Total 100 / 220 1053.75 / 1053.75 Output Total 500 / 775 675 / 675 Balance -400 / -555 378.75 / 378.75 General: Alert, Oriented x3, Cooperative, No apparent distress HEENT: Atraumatic, PERRLA, EOMI, Normocephalic Oral: Moist Mucosa, No Gingival or Mucosal Lesions/ Ulcerations Neck: Supple, No JVD, Negative Carotid Bruits, Trachea Midline, Thyroid Normal Size and Texture Lungs: Clear to auscultation, Normal air movement, No rhonchi, No wheeze, No rales, Diminished Cardiovascular: Regular rate, Regular Rhythm, Normal S1, Normal S2, PMI Normal Abdomen: Bowel Sounds Present, Soft, Non Tender, Non-Distended, No Hepato-splenomegaly, Obese Extremities: No clubbing, No cyanosis, No edema Skin: No rashes, No breakdown Lymphatic: No Cervical, Supraclavicular, or Inguinal Adenopathy Neurological: Cranial nerves II-XII grossly intact, Neuro grossly intact Psych/Mental Status: Normal Affect, Appropriate, Alert and oriented to time, place, person, mood and affect Laboratory Results 05/31/20 10:15: WBC 7.0, RBC 4.12 L, Hgb 12.7, Hct 39.8, MCV 96.6, MCH 30.8, MCHC 31.9 L, RDW Std Deviation 47.8 H, RDW Coeff of Do 13.6, Plt Count 205, MPV 10.6, Immature Gran % (Auto) 0.600, Neut % (Auto) 49.5, Lymph % (Auto) 37.7, [place] % (Auto) 7.9, Eos % (Auto) 3.4, Baso % (Auto) 0.9, Absolute Neuts (auto) 3.5, Absolute Lymphs (auto) 2.63, Nucleated RBC % 0 05/31/20 10:15: PT 12.8, INR 1.0, APTT 27.6 05/31/20 10:15: Sodium 138, Potassium 3.3 L, Chloride 103, Carbon Dioxide 29.0, Anion Gap 6, BUN 12, Creatinine 0.91, Estim Creat Clear Calc 35.75, Est GFR (MDRD) Af Amer 76, Est GFR (MDRD) Non-Af 63, BUN/Creatinine Ratio 13.2, Glucose 200 H, Calcium 9.4 05/31/20 10:15: Hemoglobin A1c 7.3 H 05/31/20 10:40: Blood Type O POSITIVE, Antibody Screen NEGATIVE 05/31/20 12:00: COVID-19 ([facility]) Negative 05/31/20 16:00: POC Glucose 155 H 05/31/20 22:06: POC Glucose 159 H 06/01/20 05:15: Sodium 140, Potassium 3.8, Chloride 103, Carbon Dioxide 31.0, Anion Gap 6, BUN 9, Creatinine 0.63, Estim Creat Clear Calc 32.53, Est GFR (MDRD) Af Amer 116, Est GFR (MDRD) Non-Af 96, BUN/Creatinine Ratio 14.4, Glucose 154 H, Calcium 8.5 06/01/20 06:58: POC Glucose 184 H Current Medications Acetaminophen (Tylenol) 650 mg PO Q6H PRN PRN PRN Reason: Pain Score 1-10/Temp > 100.7 F Last Admin: 05/31/20 22:02 Dose: 650 mg Documented by: Aspirin (Aspirin, Baby) 81 mg PO DAILY@0800 [facility] Last Admin: 06/01/20 08:03 Dose: 81 mg Documented by: Atenolol (Tenormin (Beta Geovany)) 50 mg PO BID [facility] Last Admin: 06/01/20 08:03 Dose: 50 mg Documented by: Dextrose (D50w Syringe) 0 gm IV X1 PRN; Protocol PRN Reason: Hypoglycemia Enoxaparin Sodium (Lovenox) 40 mg SC DAILY@0600 [facility] Last Admin: 06/01/20 05:14 Dose: Not Given Documented by: Glucagon () 1 mg IM .X1 PRN PRN Reason: Hypoglycemia Hydrochlorothiazide () 12.5 mg PO DAILY [facility] Last Admin: 06/01/20 08:02 Dose: 12.5 mg Documented by: Hydromorphone HCl (Dilaudid Inj) 0.5 mg IV Q3H PRN PRN PRN Reason: Pain Score 6-10/10 Sodium Chloride () 250 mls @ 15 mls/hr IV .[id number] PRN PRN Reason: Saline Flush Sodium Chloride () 250 mls @ 15 mls/hr IV .[id number] PRN PRN Reason: Additional IVPB Infusion Sodium Chloride () 1,000 mls @ 75 mls/hr IV .[id number] [facility] Last Admin: 06/01/20 02:23 Dose: 75 mls/hr Documented by: Insulin Human Lispro (Humalog Kwbritnipen (Bkc)) 0 unit SC ACHS [facility]; Protocol Last Admin: 06/01/20 07:25 Dose: Not Given Documented by: Lisinopril (Zestril) 20 mg PO DAILY [facility] Last Admin: 06/01/20 08:02 Dose: 20 mg Documented by: Ondansetron HCl (Zofran) 4 mg IV Q8H PRN PRN PRN Reason: NAUSEA/VOMITING Oxycodone HCl (Oxyir) 5 mg PO Q4H PRN PRN PRN Reason: Pain Score 4-5/10 Last Admin: 05/31/20 22:02 Dose: 5 mg Documented by: Senna/Docusate Sodium (Senokot-S, Raeann-Colace) 2 tablet PO BID PRN PRN PRN Reason: Constipation Sodium Chloride () 10 - 40 ml IV UD PRN PRN Reason: SALINE FLUSH Last Admin: 06/01/20 07:02 Dose: 10 ml Documented by: Zolpidem Tartrate (Ambien (Generic)) 5 mg PO QHS PRN PRN PRN Reason: INSOMNIA Medical Necessity - Tobacco Use Smoking Status: Never smoker Assessment/Plan All Active Problems Hyperglycemia (Acute) Fracture of femoral neck, left (Acute) This is an 84 years old female patient presented to the emergency room because of fall followed by left hip pain, found to have acute traumatic left femoral neck fracture and she is being admitted for treatment. #1 acute traumatic left femoral neck fracture: Due to mechanical fall. She is on IV morphine and OxyIR PRN for pain. Left hip pain is not well controlled. Her vital signs are stable. Repeat BMP from today reviewed, potassium is replaced and corrected. Orthopedic surgery is on the case and plan for surgery today pending cardiology consultation and recommendation. Plan: Change IV morphine to IV Dilaudid, continue OxyIR PRN. #2 preoperative evaluation: This is an 84 years old female patient with past medical history as above, lives alone, able to do her daily activities without significant restrictions, denied exertional shortness of breath or chest pain. She mentioned that she does have a history of congestive heart failure but she has not followed with cardiology. Her EKG reviewed as above the chest x-ray showed cardiomegaly, no acute findings. Routine blood work reviewed. Based on her age, past medical history, serum creatinine and functional status, her estimated risk for perioperative myocardial infarction or cardiac arrest is 0.23%. Based on ACS NSQIP surgical risk is critical, this patient's estimated risk for serious complications is below average. Patient had a history of congestive heart failure which is compensated and stable at this time. Her chest x-ray revealed cardiomegaly. Today, patient informed me that she have seen Dr. Singh around 7 to 8 years ago for congestive heart failure, had stress test at that time. I do still think that patient will need 2D echocardiogram before proceeding with surgery. #3 Newly diagnosed type 2 diabetes mellitus: Hemoglobin A1c 7.3%. Blood sugar has been in the range of 150 to 200 mg/dL. She is on insulin sliding scale. Plan to continue same treatment for now with insulin sliding scale and Accu-Cheks. #4 hypertension: Blood pressure stable, continue atenolol, lisinopril and HCTZ. #5 gout: Stable, no complaints. She is not on any treatment. #6 history of congestive heart failure: Clinically stable, compensated. Patient mentioned that she has been taking Lasix in addition to lisinopril and atenolol. Chest x-ray revealed cardiomegaly, no acute CHF. 2D echocardiogram ordered. #7 DVT prophylaxis, subcu Lovenox. This note was generated with [employer] dictation software. It may contain incorrect words, spelling, and punctuation that were not noted in checking the note before signing. Inpatient E&M: [id number] Subs Hosp L2
[2020-06-01] MEDS: HYDROmorphone 0.5 MG/0.5 ML SYRINGE IV ×3 (08:22→20:17)
--- NOTE | 2020-06-01 09:17 | NURSING ---
Dr. Etienne is here to see pt at this time. Is aware that Echo was done this morning.
--- NOTE | 2020-06-01 10:01 | PCM.CONS.C ---
Problem List (1) Preop cardiovascular exam Status: Acute (2) Pre-op evaluation Status: Acute (3) HTN (hypertension) Status: Chronic Reason for Consult Date of Consultation: 06/01/20 Reason for Consultation: Preoperative stratification, hypertension History of Present Illness: The patient is a 84 year old F, previously seen Dr. Bailey many years ago, also seen Dr. Singh more than 8 years ago, with no previous known coronary artery disease, reportedly had a previous catheterization many years ago with Dr. Bailey however we do not have those records, who had a non-syncopal fall causing a fracture to her left femoral neck requiring surgical correction. Her presenting EKG showed normal sinus rhythm, left anterior hemiblock, possible old anteroseptal wall myocardial infarction, no acute changes. Patient underwent a 2D echo with Doppler today, 06/01/2020, which showed normal LV function, mild aortic stenosis and an RVSP of 40 mmHg. Her most recent echocardiogram was from 2007 at which time showed normal LV function with an EF of 60%, and an RVSP of 25 mmHg. On further history, prior to her fall, she denied any exertional chest pain, angina, shortness of breath, dyspnea on exertion, or decreased exercise capacity. She denies any previous CVA, stents, bypass surgery or TIAs. Currently the patient is resting comfortably, waiting surgical correction of her left nondisplaced femoral neck fracture. [] Past Medical History Allergies/Adverse Reactions: Allergies Penicillins Allergy (Verified 05/31/20 13:03) Rash Home Medications: Ambulatory Orders Medication Instructions Recorded Allopurinol 300 mg PO DAILY 05/31/20 Aspirin [Aspirin, Baby] 81 mg PO DAILY@0800 05/31/20 Atenolol [Tenormin] 50 mg PO BID 05/31/20 Lisinopril/Hydrochlorothiazide 1 tab PO DAILY 05/31/20 [Lisinopril-Hctz 20-12.5 mg Tab] Past Medical History (Chronic Problems): Chronic Problems Congestive heart failure (CHF) (Chronic) Gout (Chronic) HTN (hypertension) (Chronic) Surgical History: - - Back surgery. Psychiatric History: No pertinent psych hx CLINICAL SPECIALIST History: No pertinent CLINICAL SPECIALIST history - *Family History Maternal History Items: No pertinent history Paternal History Items: No pertinent history Lives: Alone Smoking Status: Never smoker Alcohol: None Drugs: None Review of Systems - Review of Systems General: Denies: Fever, Night Sweats, Fatigue Cardiovascular: Denies: Chest Discomfort, Shortness of Breath, Orthopnea, PND, Peripheral Edema, Palpitations, Lightheadedness, Dizziness, Near Syncope, Syncope Respiratory: Denies: Cough, Sputum Production, Hemoptysis Gastrointestinal: Denies: Hematemesis, Hematochezia, Melena Genitourinary: Denies: Dysuria, Hematuria Skin: Denies: Rash Subjectve: Patient resting comfortably, no acute distress. Amatory negative. Objective: Vital Signs Temp Pulse Resp BP Pulse Ox 98.1 F 124 H 18 147/100 H 98 06/01/20 04:30 06/01/20 07:00 06/01/20 04:30 06/01/20 04:30 06/01/20 04:30 Oxygen Flow Rate (L/min) 2 Oxygen Delivery Method Nasal Cannula Weight: 190 lb 0.225 oz Body Mass Index (BMI) 34.7 Intake and Output for Last 24 Hours 05/30/20 05/31/20 06/01/20 23:59 23:59 23:59 Intake Total 100 / 220 1053.75 / 1053.75 Output Total 500 / 775 675 / 675 Balance -400 / -555 378.75 / 378.75 General: Awake, Alert, Oriented x 3 HEENT: PERRL, EOMI, Sclera Non Icteric Neck: Supple, Good ROM, No Lymph Node Enlargement Lungs: Clear to auscultation Cardiovascular: Regular Rhythm, Normal S2, No Rubs, No Gallops Murmur Murmur: Grade 2/6, Crescendo-Decrescendo Vascular: No Carotid Bruits, Normal Femoral Pulses, Normal Radial Pulses, Normal Dorsalis Pedal Pulse, Normal Posterior Tibial Pulses Abdomen: Bowel Sounds Present, Soft, Non Tender, No HSM, No Organomegaly Extremities: No Cyanosis, No Clubbing, No edema Neurological: No Focal Motor or Sensory Deficit 05/31/20 10:15: WBC 7.0, RBC 4.12 L, Hgb 12.7, Hct 39.8, MCV 96.6, MCH 30.8, MCHC 31.9 L, Plt Count 205, MPV 10.6, Immature Gran % (Auto) 0.600, Neut % (Auto) 49.5, Lymph % (Auto) 37.7, [place] % (Auto) 7.9, Eos % (Auto) 3.4, Baso % (Auto) 0.9, Absolute Neuts (auto) 3.5, Nucleated RBC % 0 05/31/20 10:15: PT 12.8, INR 1.0, APTT 27.6 05/31/20 10:15: Sodium 138, Potassium 3.3 L, Chloride 103, Carbon Dioxide 29.0, Anion Gap 6, BUN 12, Creatinine 0.91, Est GFR (MDRD) Af Amer 76, Est GFR (MDRD) Non-Af 63, BUN/Creatinine Ratio 13.2, Glucose 200 H, Calcium 9.4 05/31/20 10:15: Hemoglobin A1c 7.3 H 06/01/20 05:15: Sodium 140, Potassium 3.8, Chloride 103, Carbon Dioxide 31.0, Anion Gap 6, BUN 9, Creatinine 0.63, Est GFR (MDRD) Af Amer 116, Est GFR (MDRD) Non-Af 96, BUN/Creatinine Ratio 14.4, Glucose 154 H, Calcium 8.5 Rhythm: EKG: ECHO: Stress Test: Cardiac Cath: PCI: CT Surgery: Holter monitor: EPS: PPM: CXR: Chest CT Scan: Assessment/Plan 1. Preoperative stratification: Patient had no anginal symptoms prior to her fall, and her echo with Doppler today shows intact LV function with an EF of 65%, and RVSP of 40 mmHg. At this point the patient is at low risk for noncardiac surgery, may proceed with surgical repair of her nondisplaced left femoral neck fracture. I would use cautious and judicious of IV fluids perioperatively so as to avoid pulmonary hypertension or congestive heart failure. I do not believe she requires preoperative stress testing which would delay her urgent need for surgical correction of her left femoral neck fracture given her lack of anginal symptoms and lack of overt cardiac history in the past. Would also recommend that she continue her baby aspirin, atenolol, and hydrochlorothiazide. 2. Lipidemia: Recommend obtaining a fasting lipid profile to complete her cardiac or stratification. 3. Discussed with Dr. Burk. You very much for the opportunity to participate in the cardiac care of your patient. Consultation time took place between 9 AM and 9:30 AM. Inpatient E&M: [id number] Init Hosp L2
--- NOTE | 2020-06-01 10:10 | NURSING ---
Dr. Lozada is aware that Dr. Etienne was here and that per [place] per that pt is fine for surgery.
[2020-06-01 10:36] LABS: Cholesterol 230 mg/dL (200); High Density Lipoprotein 57 mg/dL; Triglycerides 169 mg/dL; Very Low Density Lipoprotein 34 mg/dL (5-40)
[2020-06-01 12:15] LABS: Bedside Glucose 148 mg/dL (70-110)
--- NOTE | 2020-06-01 13:17 | PCM.OPRPT ---
Report of Operation Date of Procedure: 06/01/20 Pre-Operative Diagnosis: left nondisplaced femoral neck fracture with vertical split to above lesser troch Post-Operative Diagnosis: same six color press operator: Mj Wagner Type of Anesthesia:: General Anesthesiologist: Jose Antonio Scott Estimated Blood Loss (mL): 150cc bloo Fluids Replaced: 200cc lr Description of Procedure: Preoperative note Patient seen and examined preoperative holding area. Left hip was marked. Discussed again the consent for surgery for today. Discussed that we would be doing a dynamic hip screw. Discussed the risk benefits alternatives surgery. Risk including but not limited to blood loss, blood clot, infection, neurovascular, failure procedure, loss of life and loss of limb. The biggest risk from this procedure is obviously loss of limb and loss of life from a hip fracture morbidity mortality rate. We also risk is of fracture not healing with a screw and a need to be converted to a hemiarthroplasty down the road. All this was discussed with patient who was alert awake alert oriented at all times during our conversation last night and today. Her son is not with her at the bedside but I will call him after the surgery is done he has he will be returning after. Echo was done this morning appreciated hospitalist evaluation she is moderate to high risk due to her medical comorbidities and her age and hip fracture risk. Operative note Place patient seen in preop holding area. Left leg was marked. Patient brought to the operating room and anesthesia was administered. The patient was then transferred to the use fracture table. All bony prominences well Padded and her contralateral limb was flexed externally rotated. Patient left hip was visualized under fluoroscopy we then placed under traction and internal rotation to have anatomic alignment at that point. She did have combination posterior which we did visualize on the preoperative CT as well. Left leg were then prepped and draped using sterile technique. We began by using fluoroscopy the level to maintain or evaluate the level of ourstarting point for our 2.3 threaded guide pin 135 degrees drill guide. We then placed the center center into the femoral head. We had good reduction and good maintenance of we then over tapped the standard technique. Upon tapping the crossing the fracture site we then remove the tap. We then placed our 135 degree standard barreling 38 mm screw after measuring into for a 90 mm 12.7 mm diameter DHS lag screw. After crossing the fracture site we had good purchase of the head but it did not rotate fully placed a derotational pin anterior and posterior we had good maintenance at that point however due to the fact of the comminution posteriorly we did decide to place 2 screws at the site of the derotational pins as well. We placed two 7.3 mm cannulated screws 75 mm anterior and posterior superior to the level of the DHS lag screw 12.7 mm screw. After doing this and placing and then re-tapping we then able to place the DHS screw across the fracture site maintaining our reduction. We then Tapped the plate down to bone we then drilled measured accordingly and placed our 4.5 mm cortical screws. We placed 236 138 and 140 mm screw across the fracture across the excuse me the plate in order to maintain the plate to bone which when we did have good fixation. We then placed an anti-collapse screw behind the level of the 12.7 mm screw due to the amount of comminution we did not want the lag screw to back out. Or collapse. At that point we then made and took numerous AP and lateral films ensure that we had maintenance of our calcar which we did. We then irrigated the incision with copious muscle sterile saline. We let the traction off and took images again to ensure that we did not have any collapse of the fracture site or malrotation which we did not have. We then irrigated again the IT band and lateral mass lateralis closed with 0 Vicryl the skin was closed with 2-0 Vicryl and darryl on the skin. Sterile dressings and a compression dressing applied to left leg. Patient taught procedure well no complications recovery room stable condition Postoperative note We will discuss with the son postoperatively Call with increased pain numbness tingling further issues arises We will follow-up on patient patient will be nonweightbearing for about 2 weeks due to the comminution of the fracture Call with concerns Dragon disclaimer This note was generated with [employer] dictation software. It may contain incorrect words, spelling, and punctuation that were not noted in checking the note before signing.
--- NOTE | 2020-06-01 13:40 | RAD_ITS ---
STUDY: X-RAY - PELVIS AND LEFT HIP REASON FOR EXAM: Female, 84 years old. ORIF LEFT HIP TECHNIQUE: 7 views of the pelvis and hip. COMPARISON: None. FINDINGS: 7 images were obtained intraoperatively during open reduction internal fixation of the left hip. Hardware in situ. RAD/HIP, UNI W/ Pelvis 2-3 Views IMPRESSION: Spot images obtained for hardware localization. Electronically Signed: Erin Vega MD at 19:50 EDT Tel , Service support ,
[2020-06-01] MEDS: Cefazolin 2 GM in 0.9% Normal Saline 100 ML IV (13:58)
[2020-06-01] MEDS: Mupirocin Ointment 22gm Tube 1 APPLIC (15:35)
--- NOTE | 2020-06-01 16:32 | RAD_ITS ---
STUDY: X-RAY - PELVIS AND LEFT HIP REASON FOR EXAM: Female, 84 years old. POST OP PORTABLE AP AND LAT LEFT HIP. TECHNIQUE: 2 views of the pelvis and hip. COMPARISON: None. FINDINGS: 2 images were obtained for interpretation. Status post open reduction internal fixation of the left hip. Lateral plate and screws and compression screws are in situ. Alignment is anatomic. Postsurgical changes including soft tissue gas and skin darryl. RAD/Hip Min 2 Views (Portable) IMPRESSION: Anatomic alignment status post ORIF. Electronically Signed: Erin Vega MD at 19:50 EDT Tel , Service support ,
[2020-06-01 16:40] LABS: Bedside Glucose 144 mg/dL (70-110)
[2020-06-01] MEDS: Cefazolin 1 GM/50 ML BAG IV (20:19)
[2020-06-01] MEDS: oxyCODONE 5 MG Tablet PO (22:54)
[2020-06-01] MEDS: Acetaminophen 325 MG Tablet 650 MG PO (22:54)
[2020-06-01 23:00] LABS: Bedside Glucose 146 mg/dL (70-110)
[2020-06-02] VITALS (11 sets, daily range): BP systolic 105–153; BP diastolic 56–83; PULSE 67–93; RESP 16–22; TEMP 36.8–37.3; O2SAT 93–98; BMI 34.7
[2020-06-02] MEDS: Cefazolin 1 GM/50 ML BAG IV (04:43)
[2020-06-02 05:46] LABS: Absolute Lymphocyte Count 2.05 X10^3/uL (0.83-4.51); Absolute Neutrophil Count 5.6 X10^3/uL (2.0-7.7); Basophil# 0.03 X10^3/uL; Basophil% 0.3 % (0-1); Eosinophil# 0.25 X10^3/uL; Eosinophils% 2.8 % (0-5); Hemoglobin 11.1 g/dL (12.0-15.0); Lymphocyte # 2.05 X10^3/ul (4.0); Lymphocyte % 23.1 % (19-41); Mean Corp Hgb Conc 30.8 g/dL (32-36); Mean Corpuscular Hgb 30.8 pg (27.0-32.0); Monocyte# 0.89 X10^3/uL; NRBC Flagged by Analyzer 0 % (0-5); Neutrophil % 63.3 % (47-70); Platelet Count 158 K/mm3 (150-450); RBC Distribution Width CV 13.6 % (11.6-14.6); RBC Distribution Width SD 49.2 fl (35.1-43.9); White Blood Count 8.9 K/mm3 (4.4-11.0)
[2020-06-02 06:07] LABS: Anion Gap 6 (5-15); BUN 11 mg/dL (7-18); BUN/Creat Ratio 12.5 RATIO (10-20); Calcium,Total 8.1 mg/dL (8.5-10.1); Chloride 101 mmol/L (98-107); Creatinine, Serum 0.88 mg/dL (0.55-1.02); EST Glomerular Filtration Rate 65 mL/min (>60); Est Glom Filt Rate - Afr Amer 79 mL/min (>60); Estimated Creatinine Clearance 36.97 ml/min; Glucose 170 mg/dL (74-106); Potassium 3.8 mmol/L (3.5-5.1); Sodium Level 136 mmol/L (136-145)
[2020-06-02] MEDS: 0.9% Saline Lock 10 ML Syringe IV (06:31)
[2020-06-02] MEDS: Enoxaparin 40 MG/0.4 ML Syringe SC (06:31)
[2020-06-02] MEDS: HYDROmorphone 0.5 MG/0.5 ML SYRINGE IV (06:31)
[2020-06-02] MEDS: Insulin Lispro 100 UNIT/ML INSULN.PEN SC ×4 (06:33→21:39)
[2020-06-02 06:45] LABS: Bedside Glucose 160 mg/dL (70-110)
[2020-06-02] MEDS: Lisinopril 20 MG Tablet PO (08:03)
[2020-06-02] MEDS: hydroCHLOROthiazide 12.5mg 12.5 MG PO (08:03)
[2020-06-02] MEDS: Aspirin 81 MG TAB.CHEW PO (08:03)
[2020-06-02] MEDS: Atenolol 50 MG Tablet PO ×2 (08:03→21:42)
--- NOTE | 2020-06-02 08:06 | PN_ITS ---
Patient Problems: Active and Suspected Problems Type 2 diabetes mellitus (Acute) Fracture of femoral neck, left (Acute) Subjective: Chief complaint: Follow-up after admission for acute traumatic left femoral neck fracture status post surgical repair, found to have a newly diagnosed type 2 diabetes mellitus. Patient seen and examined. No acute events overnight. She still complaining of left hip pain but IV Dilaudid is working and taking care of her pain. She denied chest pain or shortness of breath. Denied abdominal pain, nausea or vomiting. Her vital signs are stable. - Physical Exam Vitals/I&O's: Vital Signs Temp Pulse Resp BP Pulse Ox 98.2 F 67 16 105/56 L 98 06/02/20 07:57 06/02/20 07:57 06/02/20 07:57 06/02/20 07:57 06/02/20 07:57 Oxygen Flow Rate (L/min) 2 Oxygen Delivery Method Room Air Weight: 190 lb 0.227 oz Body Mass Index (BMI) 34.7 Finger Stick Blood Glucose 144 Intake and Output for Last 24 Hours 05/31/20 06/01/20 06/02/20 23:59 23:59 23:59 Intake Total 100 / 220 2221.25 / 2471.25 330 / 330 Output Total 500 / 775 1225 / 1425 325 / 325 Balance -400 / -555 996.25 / 1046.25 5 / 5 General: Alert, Oriented x3, Cooperative, No apparent distress HEENT: Atraumatic, PERRLA, EOMI, Normocephalic Oral: Moist Mucosa, No Gingival or Mucosal Lesions/ Ulcerations Neck: Supple, No JVD, Negative Carotid Bruits, Trachea Midline, Thyroid Normal Size and Texture Lungs: Clear to auscultation, Normal air movement, No rhonchi, No wheeze, No rales, Diminished Cardiovascular: Regular rate, Regular Rhythm, Normal S1, Normal S2, PMI Normal Abdomen: Bowel Sounds Present, Soft, Non Tender, Non-Distended, No Hepato- splenomegaly, Obese Extremities: No clubbing, No cyanosis, No edema Skin: No rashes, No breakdown Lymphatic: No Cervical, Supraclavicular, or Inguinal Adenopathy Neurological: Cranial nerves II-XII grossly intact, Neuro grossly intact Psych/Mental Status: Normal Affect, Appropriate, - - Hand tremors. Laboratory Results 06/01/20 05:15: Triglycerides 169, Cholesterol 230 H, LDL Cholesterol 139 H, VLDL Cholesterol 34, HDL Cholesterol 57 06/01/20 11:43: POC Glucose 148 H 06/01/20 16:36: POC Glucose 144 H 06/01/20 22:39: POC Glucose 146 H 06/02/20 05:34: WBC 8.9, RBC 3.60 L, Hgb 11.1 L, Hct 36.0 L, MCV 100.0 H, MCH 30.8, MCHC 30.8 L, RDW Std Deviation 49.2 H, RDW Coeff of Do 13.6, Plt Count 158, MPV 10.0, Immature Gran % (Auto) 0.500, Neut % (Auto) 63.3, Lymph % (Auto) 23.1, [place] % (Auto) 10.0, Eos % (Auto) 2.8, Baso % (Auto) 0.3, Absolute Neuts (auto) 5.6, Absolute Lymphs (auto) 2.05, Nucleated RBC % 0 06/02/20 05:34: Sodium 136, Potassium 3.8, Chloride 101, Carbon Dioxide 29.0, Anion Gap 6, BUN 11, Creatinine 0.88, Estim Creat Clear Calc 36.97, Est GFR (MDRD) Af Amer 79, Est GFR (MDRD) Non-Af 65, BUN/Creatinine Ratio 12.5, Glucose 170 H, Calcium 8.1 L 06/02/20 06:33: POC Glucose 160 H Current Medications Acetaminophen (Tylenol) 650 mg PO Q6H PRN PRN PRN Reason: Pain Score 1-10/Temp > 100.7 F Last Admin: 06/01/20 22:54 Dose: 650 mg Documented by: Aspirin (Aspirin, Baby) 81 mg PO DAILY@0800 [facility] Last Admin: 06/02/20 08:03 Dose: 81 mg Documented by: Atenolol (Tenormin (Beta Geovany)) 50 mg PO BID [facility] Last Admin: 06/02/20 08:03 Dose: 50 mg Documented by: Dextrose (D50w Syringe) 0 gm IV X1 PRN; Protocol PRN Reason: Hypoglycemia Enoxaparin Sodium (Lovenox) 40 mg SC DAILY@0600 [facility] Last Admin: 06/02/20 06:31 Dose: 40 mg Documented by: Glucagon () 1 mg IM .X1 PRN PRN Reason: Hypoglycemia Hydrochlorothiazide () 12.5 mg PO DAILY [facility] Last Admin: 06/02/20 08:03 Dose: 12.5 mg Documented by: Hydromorphone HCl (Dilaudid Inj) 0.5 mg IV Q3H PRN PRN PRN Reason: Pain Score 6-10/10 Last Admin: 06/02/20 06:31 Dose: 0.5 mg Documented by: Sodium Chloride () 250 mls @ 15 mls/hr IV .[id number] PRN PRN Reason: Saline Flush Sodium Chloride () 250 mls @ 15 mls/hr IV .[id number] PRN PRN Reason: Additional IVPB Infusion Insulin Human Lispro (Humalog Kwikpen (Bkc)) 0 unit SC [facility]; Protocol Last Admin: 06/02/20 06:33 Dose: 1 units Documented by: Lisinopril (Zestril) 20 mg PO DAILY [facility] Last Admin: 06/02/20 08:03 Dose: 20 mg Documented by: Ondansetron HCl (Zofran) 4 mg IV Q8H PRN PRN PRN Reason: NAUSEA/VOMITING Oxycodone HCl (Oxyir) 5 mg PO Q4H PRN PRN PRN Reason: Pain Score 4-5/10 Last Admin: 06/01/20 22:54 Dose: 5 mg Documented by: Senna/Docusate Sodium (Senokot-S, Raeann-Colace) 2 tablet PO BID PRN PRN PRN Reason: Constipation Sodium Chloride () 10 - 40 ml IV UD PRN PRN Reason: SALINE FLUSH Last Admin: 06/02/20 06:31 Dose: 10 ml Documented by: Zolpidem Tartrate (Ambien (Generic)) 5 mg PO QHS PRN PRN PRN Reason: INSOMNIA Medical Necessity - Tobacco Use Smoking Status: Never smoker Assessment/Plan All Active Problems Type 2 diabetes mellitus (Acute) Fracture of femoral neck, left (Acute) This is an 84 years old female patient presented to the emergency room because of fall followed by left hip pain, found to have acute traumatic left femoral neck fracture and she is being admitted for treatment. #1 acute traumatic left femoral neck fracture: Status post surgical repair, postoperative day 1. She is on IV Dilaudid and OxyIR PRN for pain. IV Dilaudid is taking care of her pain. Repeat routine blood work from today reviewed, remarkable for hemoglobin of 11.1 g/dL, otherwise unremarkable. Orthopedic surgery is on the case and managing. Recommended nonweightbearing for 2 weeks. Awaiting orthopedic surgery recommendations about postoperative DVT prophylaxis. Patient will need placement to intermediate facility. #2 Perioperative evaluation: At this time, no significant postoperative complications. Routine blood work revealed hemoglobin of 11.1, it was 12.7 on admission. Likely because of some blood loss during surgery and hemodilution. Her vital signs are stable. 2D echocardiogram reviewed. Plan to monitor, repeat H&H tomorrow morning. #3 Newly diagnosed type 2 diabetes mellitus: Hemoglobin A1c 7.3%. Blood sugar has been in the range of 150 to 200 mg/dL. She is on insulin sliding scale. Plan to start her on metformin upon discharge. #4 hypertension: Blood pressure stable, continue atenolol, lisinopril and HCTZ. #5 gout: Stable, no complaints. She is not on any treatment. #6 history of congestive heart failure: Clinically stable, compensated. Continue atenolol, lisinopril and HCTZ. 2D echocardiogram reveals ejection fraction of 65%, stage I diastolic dysfunction, RVSP of 40 consistent with mild pulmonary hypertension and revealed mild aortic stenosis. #7 DVT prophylaxis, subcu Lovenox. This note was generated with [employer] dictation software. It may contain incorrect words, spelling, and punctuation that were not noted in checking the note before signing. Inpatient E&M: 88476 Subs Hosp L2
--- NOTE | 2020-06-02 08:31 | PN.CARD_ITS ---
Subjectve: Patient doing fairly well this morning, telemetry showed normal sinus rhythm with rare PVCs. No chest pain. Objective: Vital Signs Temp Pulse Resp BP Pulse Ox 98.2 F 67 16 105/56 L 98 06/02/20 07:57 06/02/20 08:13 06/02/20 07:57 06/02/20 07:57 06/02/20 07:57 Oxygen Flow Rate (L/min) 2 Oxygen Delivery Method Room Air Weight: 190 lb 0.227 oz Body Mass Index (BMI) 34.7 Finger Stick Blood Glucose 144 Intake and Output for Last 24 Hours 05/31/20 06/01/20 06/02/20 23:59 23:59 23:59 Intake Total 100 / 220 2221.25 / 2471.25 1216.25 / 1216.25 Output Total 500 / 775 1225 / 1425 325 / 325 Balance -400 / -555 996.25 / 1046.25 891.25 / 891.25 General: Awake, Alert, Oriented x 3 HEENT: PERRL, EOMI, Sclera Non Icteric Neck: Supple, Good ROM, No Lymph Node Enlargement Lungs: Clear to auscultation Cardiovascular: Regular Rhythm, Normal S2, No Rubs, No Gallops Murmur Murmur: Grade 2/6, Crescendo-Decrescendo Vascular: No Carotid Bruits, Normal Femoral Pulses, Normal Radial Pulses, Normal Dorsalis Pedal Pulse, Normal Posterior Tibial Pulses Abdomen: Bowel Sounds Present, Soft, Non Tender, No HSM, No Organomegaly Extremities: No Cyanosis, No Clubbing, No edema Neurological: No Focal Motor or Sensory Deficit 06/01/20 05:15: Triglycerides 169, Cholesterol 230 H, LDL Cholesterol 139 H, VLDL Cholesterol 34, HDL Cholesterol 57 06/02/20 05:34: WBC 8.9, RBC 3.60 L, Hgb 11.1 L, Hct 36.0 L, MCV 100.0 H, MCH 30.8, MCHC 30.8 L, Plt Count 158, MPV 10.0, Immature Gran % (Auto) 0.500, Neut % (Auto) 63.3, Lymph % (Auto) 23.1, [place] % (Auto) 10.0, Eos % (Auto) 2.8, Baso % (Auto) 0.3, Absolute Neuts (auto) 5.6, Nucleated RBC % 0 06/02/20 05:34: Sodium 136, Potassium 3.8, Chloride 101, Carbon Dioxide 29.0, Anion Gap 6, BUN 11, Creatinine 0.88, Est GFR (MDRD) Af Amer 79, Est GFR (MDRD) Non-Af 65, BUN/Creatinine Ratio 12.5, Glucose 170 H, Calcium 8.1 L Rhythm: EKG: ECHO: Stress Test: Cardiac Cath: PCI: CT Surgery: Holter monitor: EPS: PPM: CXR: Chest CT Scan: Medical Necessity - Tobacco Use Smoking Status: Never smoker Assessment/Plan 1. Postoperative cardiac management: Patient had no anginal symptoms prior to her fall, and her echo with Doppler today shows intact LV function with an EF of 65%, and RVSP of 40 mmHg. Patient underwent left hip repair surgery yesterday, with no complications. She is doing well this morning. Her telemetry has shown normal sinus rhythm with rare PVCs. She denies any chest pain or anginal symptoms or difficulty breathing. I would use cautious and judicious of IV fluids perioperatively so as to avoid pulmonary hypertension or congestive heart failure. Would also recommend that she continue her baby aspirin, atenolol, and hydrochlorothiazide. 2. Lipidemia: DL is 139, and HDL is 57. 3. Thank you very much for the opportunity to participate in the cardiac care of your patient. She may follow-up with Dr. Etienne going forward as an outpatient. We will sign off, call with any questions. Thank you. Inpatient E&M: [id number] Subs Hosp L2
[2020-06-02] MEDS: oxyCODONE 5 MG Tablet PO ×2 (09:33→19:04)
--- NOTE | 2020-06-02 09:43 | CASEMGMT ---
Living will is scanned into summary tab of CLAUDINE jimenez not on chart. Pt had said the forms are not here, she is unable to bring them in at this time. LEIGH ANN Celestin
--- NOTE | 2020-06-02 09:46 | RAD_ITS ---
STUDY: X-RAY - LEFT WRIST REASON FOR EXAM: Female, 84 years old. FALL ON TUESDAY, PAIN. TECHNIQUE: 3 view(s) of the wrist were obtained. COMPARISON: None. FINDINGS: Normal visualized distal radius and ulna. Normal radiocarpal articulation. Normal distal radioulnar articulation. There is a 6 mm x 7.8 mm cyst in the lunate bone. Degenerative changes at the navicular trapezium joint. There is degenerative arthrosis of the carpometacarpal articulation of the thumb. Normal second through fifth carpometacarpal articulations. Normal visualized metacarpal bones. Soft tissue swelling. RAD/Wrist min 3 Views IMPRESSION: Degenerative changes. No acute abnormality is seen. Electronically Signed: Earl Santizo, at 14:16 EDT , Service support ,
--- NOTE | 2020-06-02 09:58 | CASEMGMT ---
Addendum entered by Josie Borrero 06/02/20 14:59: SW spoke w/Mercedez at [facility]. Pt has been accepted at [facility]. SW let pt know and son know via phone. SW will continue to follow. LEIGH ANN Celestin Addendum entered by Josie Borrero 06/02/20 13:06: SW spoke w/pt and son, they would like referral sent to [facility]. SW called, message left, referral faxed. SW will continue to follow. LEIGH ANN Celestin Original Note: SW met w/pt in room, spoke w/pt about prior level of care and discharge plan. PCP: Dr. Garcia Specialists: sees a physician for gout in [place], can't remember name Pharmacy: [facility] Insurance: Medicare/[employer] Next of Kin: Pt has two sons and a daughter, all in the area POA/LW: LW on file, POA not, as per pt, daughter Arely is medical POA Living arrangements/prior level of care: Pt lives alone in a condo, no steps to enter. Pt fully independent to this other than a having a cleaning lady. Pt still drives. Pt has no history of SNF placement. Plan: SW spoke w/pt about going somewhere for rehab, pt in agreement with this. SW provided list of Medicare certified facilities with star ratings to pt. Pt would like to speak w/her son who will be in later about where she would like to go. Plan: SNF, referral will be sent to facility of pt's choice, awaiting son's arrival for decision on where to send referral. LEIGH ANN Celestin
[2020-06-02 12:11] LABS: Bedside Glucose 202 mg/dL (70-110)
--- NOTE | 2020-06-02 12:41 | PCM.PN.ORT ---
Patient Problems: Active and Suspected Problems Type 2 diabetes mellitus (Acute) Fracture of femoral neck, left (Acute) Subjective: Patient is resting in her bed at this time showing no acute signs of distress or pain. She does state that her pain is approximately 7 or 8 out of 10 however again does not show any signs of outward distress/discomfort. She states that they did switch her pain medication around and that the pain has been better controlled since they did switch this. She has been doing her ankle pumps and wiggling her toes. She does complain of pain at this point in the calf as well as in her left wrist. She denies any numbness or tingling, swelling, ecchymosis/bruising, warmth, or other changes in the extremity. Objective: Patient being status post femoral neck fracture repair with screw fixation. Patient is seated upright in her hospital bed upon entering the room and shows no sign of discomfort/distress. She is alert and oriented x3 and is appropriate in conversation as well as in her mood. Inspection of the incision site shows no surrounding erythema, warmth, discharge, or other signs of infection. She does have multiple spider veins noted throughout the extremity. There is minimal swelling of the distal extremity compared to the right with very minor sock line. She still some mild tenderness on palpation around the incision site. Patient does have tenderness on palpation of the calf as well as pain with dorsiflexion/Homans sign. Palpation of lower extremity reveals soft compartments throughout the extremity. She does have normal 2+ distal pedal pulses and normal sensation throughout the extremity. She does have intact motor function with normal dorsiflexion and plantarflexion of the ankle as well as ability to wiggle her toes. Again noted she does have pain in the calf with dorsiflexion of the ankle. Physical exam of the left wrist also show some tenderness on palpation of the distal radius. Minimal discomfort along the carpal metacarpal regions. She has intact sensation of the extremity normal distal radial pulses. She has intact motor function of the wrist at the same time does have some discomfort with terminal flexion extension of the distal radius region. - Physical Exam Vitals/I&O's: Vital Signs Temp Pulse Resp BP Pulse Ox 98.2 F 67 16 105/56 L 98 06/02/20 07:57 06/02/20 08:13 06/02/20 07:57 06/02/20 07:57 06/02/20 07:57 Oxygen Flow Rate (L/min) 2 Oxygen Delivery Method Room Air Weight: 190 lb 0.227 oz Body Mass Index (BMI) 34.7 Finger Stick Blood Glucose 144 Intake and Output for Last 24 Hours 05/31/20 06/01/20 06/02/20 23:59 23:59 23:59 Intake Total 100 / 220 2221.25 / 2471.25 1516.25 / 1516.25 Output Total 500 / 775 1225 / 1425 525 / 525 Balance -400 / -555 996.25 / 1046.25 991.25 / 991.25 General: Alert, Oriented x3, Cooperative, No apparent distress, Well developed, Well nourished Oral: Moist Mucosa Extremities: No clubbing, No cyanosis, Edema - Minimal distal extremity edema, Tenderness - Calf tenderness Skin: No rashes, Incision - Incision is clean, dry, and intact with indwelling darryl. No surrounding erythema, warmth, discharge, or other skin changes. Musculoskeletal: Tenderness - Left hip as well as left distal radius Laboratory Results 06/01/20 16:36: POC Glucose 144 H 06/01/20 22:39: POC Glucose 146 H 06/02/20 05:34: WBC 8.9, RBC 3.60 L, Hgb 11.1 L, Hct 36.0 L, MCV 100.0 H, MCH 30.8, MCHC 30.8 L, RDW Std Deviation 49.2 H, RDW Coeff of Do 13.6, Plt Count 158, MPV 10.0, Immature Gran % (Auto) 0.500, Neut % (Auto) 63.3, Lymph % (Auto) 23.1, [place] % (Auto) 10.0, Eos % (Auto) 2.8, Baso % (Auto) 0.3, Absolute Neuts (auto) 5.6, Absolute Lymphs (auto) 2.05, Nucleated RBC % 0 06/02/20 05:34: Sodium 136, Potassium 3.8, Chloride 101, Carbon Dioxide 29.0, Anion Gap 6, BUN 11, Creatinine 0.88, Estim Creat Clear Calc 36.97, Est GFR (MDRD) Af Amer 79, Est GFR (MDRD) Non-Af 65, BUN/Creatinine Ratio 12.5, Glucose 170 H, Calcium 8.1 L 06/02/20 06:33: POC Glucose 160 H 06/02/20 11:43: POC Glucose 202 H Current Medications Acetaminophen (Tylenol) 650 mg PO Q6H PRN PRN PRN Reason: Pain Score 1-10/Temp > 100.7 F Last Admin: 06/01/20 22:54 Dose: 650 mg Documented by: Aspirin (Aspirin, Baby) 81 mg PO DAILY@0800 [facility] Last Admin: 06/02/20 08:03 Dose: 81 mg Documented by: Atenolol (Tenormin (Beta Geovany)) 50 mg PO BID [facility] Last Admin: 06/02/20 08:03 Dose: 50 mg Documented by: Dextrose (D50w Syringe) 0 gm IV X1 PRN; Protocol PRN Reason: Hypoglycemia Enoxaparin Sodium (Lovenox) 40 mg SC DAILY@0600 [facility] Last Admin: 06/02/20 06:31 Dose: 40 mg Documented by: Glucagon () 1 mg IM .X1 PRN PRN Reason: Hypoglycemia Hydrochlorothiazide () 12.5 mg PO DAILY [facility] Last Admin: 06/02/20 08:03 Dose: 12.5 mg Documented by: Hydromorphone HCl (Dilaudid Inj) 0.5 mg IV Q3H PRN PRN PRN Reason: Pain Score 6-10/10 Last Admin: 06/02/20 06:31 Dose: 0.5 mg Documented by: Sodium Chloride () 250 mls @ 15 mls/hr IV .[id number] PRN PRN Reason: Saline Flush Sodium Chloride () 250 mls @ 15 mls/hr IV .[id number] PRN PRN Reason: Additional IVPB Infusion Insulin Human Lispro (Humalog Kwikpen (Bkc)) 0 unit SC ACHS [facility]; Protocol Last Admin: 06/02/20 11:49 Dose: 1 units Documented by: Lisinopril (Zestril) 20 mg PO DAILY [facility] Last Admin: 06/02/20 08:03 Dose: 20 mg Documented by: Ondansetron HCl (Zofran) 4 mg IV Q8H PRN PRN PRN Reason: NAUSEA/VOMITING Oxycodone HCl (Oxyir) 5 mg PO Q4H PRN PRN PRN Reason: Pain Score 4-5/10 Last Admin: 06/02/20 09:33 Dose: 5 mg Documented by: Senna/Docusate Sodium (Senokot-S, Raeann-Colace) 2 tablet PO BID PRN PRN PRN Reason: Constipation Sodium Chloride () 10 - 40 ml IV UD PRN PRN Reason: SALINE FLUSH Last Admin: 06/02/20 06:31 Dose: 10 ml Documented by: Zolpidem Tartrate (Ambien (Generic)) 5 mg PO QHS PRN PRN PRN Reason: INSOMNIA Medical Necessity - Tobacco Use Smoking Status: Never smoker Assessment/Plan All Active Problems Type 2 diabetes mellitus (Acute) Fracture of femoral neck, left (Acute) Patient was seen today for evaluation of left femoral neck fracture repaired with screw fixation. Patient is 1 day postop and at this time appears to be doing well. She complains of some moderate pain in the same time shows no signs of distress upon physical examination. Her incision shows no signs of infection at this time. She still has evident tenderness around the incision site and the hip joint. She also does have some calf tenderness and pain with dorsiflexion/Homans sign. She is neurovascularly intact at this time with normal distal pedal pulses, sensation, and motor dysfunction of the ankle/foot/toes. At this time patient needs to continue with physical therapy at the same time she should be toe-touch weightbearing only as opposed to being full weightbearing. This is a change from her postop instructions. We did go ahead and order x-rays of the distal radius as she was complaining of some pain. We also get a proceed with a Doppler of the left lower extremity due to calf tenderness and pain with dorsiflexion/Homans. Continue to ice the area and work on her ankle pumps.
--- NOTE | 2020-06-02 13:20 | VDLE_ITS ---
Reason For Study: Pain Procedure LEFT Exam performed portable in patient room. GSV is normal. A preliminary report was called and/or faxed CFV, SFJ, FV, PopV and T/P Trunk is to Gauri DIAZ. visualized with color only, pt unable to tolerate compression. Normal veous flow noted in the CFV, FV and PopV. Acute deep vein thrombosis is noted in the PTV, PeroV and GastrocV. Interpretation Summary Technically limited examination as noted with inability to tolerate compression of the left common femoral, femoral, popliteal, tibioperoneal trunk and saphenofemoral junction. Interpretation based mostly upon color flow identifying acute deep venous thrombosis in the left posterior tibial and peroneal and gastrocnemius veins. Patent and compressible left great saphenous vein Ordering Physician: Ananda Louis Referring Physician: Annie Garcia Performed By: Indira Sanchez RVT
--- NOTE | 2020-06-02 19:40 | NURSING ---
assisted pt on bedpan and she had difficulty with pain. put purewick in place. education provided on purewick. pt requested kpad on hip incision. educated re: increased risk of bleeding, infection and increase swelling. primary rn made aware of pt's request.
[2020-06-02 21:11] LABS: Bedside Glucose 193 mg/dL (70-110)
[2020-06-02] MEDS: Enoxaparin 100 MG/ML Syringe 90 MG SC (21:40)
[2020-06-02] MEDS: Acetaminophen 325 MG Tablet 650 MG PO (21:43)
[2020-06-03] VITALS (12 sets, daily range): BP systolic 140–169; BP diastolic 66–94; PULSE 65–80; RESP 18–20; TEMP 36.4–37.1; O2SAT 93–100
[2020-06-03 00:15] LABS: Bedside Glucose 188 mg/dL (70-110)
[2020-06-03] MEDS: oxyCODONE 5 MG Tablet PO ×4 (00:52→21:35)
[2020-06-03 05:11] LABS: Hematocrit 39.8 % (37-47); Hemoglobin 12.4 g/dL (12.0-15.0)
[2020-06-03] MEDS: Insulin Lispro 100 UNIT/ML INSULN.PEN SC ×2 (06:52→11:42)
[2020-06-03] MEDS: Aspirin 81 MG TAB.CHEW PO (08:24)
[2020-06-03] MEDS: Atenolol 50 MG Tablet PO ×2 (08:24→21:35)
[2020-06-03] MEDS: hydroCHLOROthiazide 12.5mg 12.5 MG PO (08:25)
[2020-06-03] MEDS: Enoxaparin 100 MG/ML Syringe 90 MG SC (08:25)
[2020-06-03] MEDS: Lisinopril 20 MG Tablet PO (08:27)
--- NOTE | 2020-06-03 11:46 | CASEMGMT ---
Addendum entered by Josie Borrero 06/03/20 12:47: PT/OT updates faxed to [facility]. LEIGH ANN Celestin Original Note: SW completed pt's convalescent form in [facility]. Pt will be ready for discharge as of tomorrow. SW let pt, son and grandson in room physician states pt will be ready for discharge tomorrow. SW also did let son know LW on file but not POA, son states has it in his truck, SW asked him to bring it in tomorrow,and we can make a copy for the chart; son states understanding. NAJMA called Mercedez at [facility] and let her know pt will be discharged tomorrow. LEIGH ANN Celestin
[2020-06-03 11:50] LABS: Bedside Glucose 204 mg/dL (70-110)
--- NOTE | 2020-06-03 12:04 | PCM.PROGNOTE ---
Patient Problems: Active and Suspected Problems Type 2 diabetes mellitus (Acute) Fracture of femoral neck, left (Acute) Subjective: Chief complaint: Follow-up after admission for acute traumatic left pneumonic fracture, newly diagnosed type 2 diabetes mellitus and she was found to have acute DVT of the left lower extremity. Patient seen and examined. No acute events overnight. This morning, she mentioned that her left hip pain is getting better. Left hand pain improved. X-ray of the left wrist showed no fractures. Her vital signs are stable. - Physical Exam Vitals/I&O's: Vital Signs Temp Pulse Resp BP Pulse Ox 98.1 F 69 18 155/84 H 100 06/03/20 08:06 06/03/20 08:06 06/03/20 08:06 06/03/20 08:06 06/03/20 08:06 Oxygen Flow Rate (L/min) 2 Oxygen Delivery Method Room Air Weight: 190 lb 0.227 oz Body Mass Index (BMI) 34.7 Finger Stick Blood Glucose 144 Intake and Output for Last 24 Hours 06/01/20 06/02/20 06/03/20 23:59 23:59 23:59 Intake Total 2221.25 / 2471.25 1816.25 / 1916.25 200 / 200 Output Total 1225 / 1425 625 / 625 50 / 50 Balance 996.25 / 1046.25 1191.25 / 1291.25 150 / 150 General: Alert, Oriented x3, Cooperative, No apparent distress HEENT: Atraumatic, PERRLA, EOMI, Normocephalic Oral: Moist Mucosa, No Gingival or Mucosal Lesions/ Ulcerations Neck: Supple, No JVD, Negative Carotid Bruits, Trachea Midline, Thyroid Normal Size and Texture Lungs: Clear to auscultation, Normal air movement, No rhonchi, No wheeze, No rales, Diminished Cardiovascular: Regular rate, Regular Rhythm, Normal S1, Normal S2, No murmurs, PMI Normal Abdomen: Bowel Sounds Present, Soft, Non Tender, Non-Distended, No Hepato-splenomegaly Extremities: No clubbing, No cyanosis, No edema Skin: No rashes, No breakdown Lymphatic: No Cervical, Supraclavicular, or Inguinal Adenopathy Neurological: Cranial nerves II-XII grossly intact, Neuro grossly intact Psych/Mental Status: Normal Affect, Appropriate Laboratory Results 06/02/20 11:43: POC Glucose 202 H 06/02/20 16:54: POC Glucose 193 H 06/02/20 21:38: POC Glucose 188 H 06/03/20 04:48: Hgb 12.4, Hct 39.8 06/03/20 11:34: POC Glucose 204 H Current Medications Acetaminophen (Tylenol) 650 mg PO Q6H PRN PRN PRN Reason: Pain Score 1-10/Temp > 100.7 F Last Admin: 06/02/20 21:43 Dose: 650 mg Documented by: Apixaban (Eliquis) 5 mg PO BID [facility] Aspirin (Aspirin, Baby) 81 mg PO DAILY@0800 [facility] Last Admin: 06/03/20 08:24 Dose: 81 mg Documented by: Atenolol (Tenormin (Beta Geovany)) 50 mg PO BID [facility] Last Admin: 06/03/20 08:24 Dose: 50 mg Documented by: Dextrose (D50w Syringe) 0 gm IV X1 PRN; Protocol PRN Reason: Hypoglycemia Glucagon () 1 mg IM .X1 PRN PRN Reason: Hypoglycemia Hydrochlorothiazide () 12.5 mg PO DAILY [facility] Last Admin: 06/03/20 08:25 Dose: 12.5 mg Documented by: Hydromorphone HCl (Dilaudid Inj) 0.5 mg IV Q3H PRN PRN PRN Reason: Pain Score 6-10/10 Last Admin: 06/02/20 06:31 Dose: 0.5 mg Documented by: Sodium Chloride () 250 mls @ 15 mls/hr IV .[id number] PRN PRN Reason: Saline Flush Sodium Chloride () 250 mls @ 15 mls/hr IV .[id number] PRN PRN Reason: Additional IVPB Infusion Insulin Human Lispro (Humalog Kwikpen (Bkc)) 0 unit SC ACHS [facility]; Protocol Last Admin: 06/03/20 11:42 Dose: 1 units Documented by: Lisinopril (Zestril) 20 mg PO DAILY [facility] Last Admin: 06/03/20 08:27 Dose: 20 mg Documented by: [facility] Ondansetron HCl (Zofran) 4 mg IV Q8H PRN PRN PRN Reason: NAUSEA/VOMITING Oxycodone HCl (Oxyir) 5 mg PO Q4H PRN PRN PRN Reason: Pain Score 4-5/10 Last Admin: 06/03/20 05:02 Dose: 5 mg Documented by: Senna/Docusate Sodium (Senokot-S, Raeann-Colace) 2 tablet PO BID PRN PRN PRN Reason: Constipation Sodium Chloride () 10 - 40 ml IV UD PRN PRN Reason: SALINE FLUSH Last Admin: 06/02/20 06:31 Dose: 10 ml Documented by: Zolpidem Tartrate (Ambien (Generic)) 5 mg PO QHS PRN PRN PRN Reason: INSOMNIA Medical Necessity - Tobacco Use Smoking Status: Never smoker Assessment/Plan All Active Problems Type 2 diabetes mellitus (Acute) Fracture of femoral neck, left (Acute) This is an 84 years old female patient presented to the emergency room because of fall followed by left hip pain, found to have acute traumatic left femoral neck fracture and she is being admitted for treatment. #1 acute traumatic left femoral neck fracture: Status post surgical repair/screw fixation, postoperative day 2. She is on IV Dilaudid and OxyIR PRN for pain. Left hip pain is getting better. X-ray of the left wrist showed no acute fractures. Orthopedic surgery is on the case and managing. Recommended toe-touch weightbearing only for 2 weeks. Plan to continue same treatment, anticipate discharge to SNF tomorrow. #2 Acute DVT of the left lower extremity: Venous Doppler of the left leg done and revealed acute DVT of the posterior tibial vein, peroneal vein and gastrocnemius vein. Patient is on therapeutic Lovenox twice daily. Plan to start Eliquis tonight. #3 Newly diagnosed type 2 diabetes mellitus: Hemoglobin A1c 7.3%. Blood sugar has been in the range of 150 to 200 mg/dL. She is on insulin sliding scale. We will stop metformin today. #4 hypertension: Blood pressure stable, continue atenolol, lisinopril and HCTZ. #5 gout: Stable, no complaints. She is not on any treatment. #6 history of congestive heart failure: Clinically stable, compensated. Continue atenolol, lisinopril and HCTZ. 2D echocardiogram reveals ejection fraction of 65%, stage I diastolic dysfunction, RVSP of 40 consistent with mild pulmonary hypertension and revealed mild aortic stenosis. #7 DVT prophylaxis: Currently on therapeutic Lovenox twice daily, will start Eliquis for DVT treatment tonight. This note was generated with [employer] dictation software. It may contain incorrect words, spelling, and punctuation that were not noted in checking the note before signing. Inpatient E&M: 40419 Subs Hosp L2
--- NOTE | 2020-06-03 12:40 | PCM.PN.ORT ---
Subjective: Patient seen and examined at bedside. Patient is having no issues. Patient was up to bed with chair today. Patient has no chest pain shortness of breath fever chills or other constitutional symptoms. She has been treated for a blood clot in her lower extremity. Patient is being transferred to [facility] facility as she will be toe-touch weightbearing on her operative limb. - Physical Exam Vitals/I&O's: Vital Signs Temp Pulse Resp BP Pulse Ox 98.1 F 76 18 155/84 H 100 06/03/20 08:06 06/03/20 12:15 06/03/20 08:06 06/03/20 08:06 06/03/20 08:06 Oxygen Flow Rate (L/min) 2 Oxygen Delivery Method Room Air Weight: 190 lb 0.227 oz Body Mass Index (BMI) 34.7 Finger Stick Blood Glucose 144 Intake and Output for Last 24 Hours 06/01/20 06/02/20 06/03/20 23:59 23:59 23:59 Intake Total 2221.25 / 2471.25 1816.25 / 1916.25 800 / 800 Output Total 1225 / 1425 625 / 625 50 / 50 Balance 996.25 / 1046.25 1191.25 / 1291.25 750 / 750 General: Alert, Oriented x3, Cooperative HEENT: Atraumatic, PERRLA, EOMI, Normocephalic Neck: Supple, No JVD, Negative Carotid Bruits Lungs: Clear to auscultation, Normal air movement Cardiovascular: Regular rate, No murmurs Abdomen: Bowel Sounds Present, Soft, Non Tender Extremities: No edema, Capillary Refill Less than 3 Seconds Skin: No rashes, No breakdown Musculoskeletal: Tenderness - arom/prom bilateral lower extremities, no active drainage, incision cdi, sgi, no active drainage Neurological: Cranial nerves II-XII grossly intact Psych/Mental Status: Normal Affect, Appropriate Laboratory Results 06/02/20 16:54: POC Glucose 193 H 06/02/20 21:38: POC Glucose 188 H 06/03/20 04:48: Hgb 12.4, Hct 39.8 06/03/20 11:34: POC Glucose 204 H Current Medications Acetaminophen (Tylenol) 650 mg PO Q6H PRN PRN PRN Reason: Pain Score 1-10/Temp > 100.7 F Last Admin: 06/02/20 21:43 Dose: 650 mg Documented by: Apixaban (Eliquis) 5 mg PO BID [facility] Aspirin (Aspirin, Baby) 81 mg PO DAILY@0800 [facility] Last Admin: 06/03/20 08:24 Dose: 81 mg Documented by: Atenolol (Tenormin (Beta Geovany)) 50 mg PO BID [facility] Last Admin: 06/03/20 08:24 Dose: 50 mg Documented by: Dextrose (D50w Syringe) 0 gm IV X1 PRN; Protocol PRN Reason: Hypoglycemia Glucagon () 1 mg IM .X1 PRN PRN Reason: Hypoglycemia Hydrochlorothiazide () 12.5 mg PO DAILY [facility] Last Admin: 06/03/20 08:25 Dose: 12.5 mg Documented by: Hydromorphone HCl (Dilaudid Inj) 0.5 mg IV Q3H PRN PRN PRN Reason: Pain Score 6-10/10 Last Admin: 06/02/20 06:31 Dose: 0.5 mg Documented by: Sodium Chloride () 250 mls @ 15 mls/hr IV .[id number] PRN PRN Reason: Saline Flush Sodium Chloride () 250 mls @ 15 mls/hr IV .[id number] PRN PRN Reason: Additional IVPB Infusion Insulin Human Lispro (Humalog Kwikpen (Bkc)) 0 unit SC [facility]; Protocol Last Admin: 06/03/20 11:42 Dose: 1 units Documented by: Lisinopril (Zestril) 20 mg PO DAILY [facility] Last Admin: 06/03/20 08:27 Dose: 20 mg Documented by: [facility] Ondansetron [facility] (Zofran) 4 mg IV Q8H PRN PRN PRN Reason: NAUSEA/VOMITING Oxycodone HCl (Oxyir) 5 mg PO Q4H PRN PRN PRN Reason: Pain Score 4-5/10 Last Admin: 06/03/20 12:36 Dose: 5 mg Documented by: Senna/Docusate Sodium (Senokot-S, Raeann-Colace) 2 tablet PO BID PRN PRN PRN Reason: Constipation Sodium Chloride () 10 - 40 ml IV UD PRN PRN Reason: SALINE FLUSH Last Admin: 06/02/20 06:31 Dose: 10 ml Documented by: Zolpidem Tartrate (Ambien (Generic)) 5 mg PO QHS PRN PRN PRN Reason: INSOMNIA Medical Necessity - Tobacco Use Smoking Status: Never smoker Assessment/Plan All Active Problems Type 2 diabetes mellitus (Acute) Fracture of femoral neck, left (Acute) pod 2 s/p orif left hip dvt left LE X-rays show [facility] left hip with supplemental proximal screw fixation dispo tomorrow oh dvt- eliquis per hospitalist - pcp/cards to follow follow up in 2 weeks with ortho for postop check Call with increased pain numbness tingling further issues arise or If concerns about patient or disposition change [phone] This note was generated with [employer] dictation software. It may contain incorrect words, spelling, and punctuation that were not noted in checking the note before signing.
[2020-06-03] MEDS: metFORMIN HCl 500 MG Tablet PO (16:43)
[2020-06-03 16:50] LABS: Bedside Glucose 222 mg/dL (70-110)
[2020-06-03] MEDS: 0.9% Saline Lock 10 ML Syringe IV (21:34)
[2020-06-03] MEDS: Acetaminophen 325 MG Tablet 650 MG PO (21:34)
[2020-06-03] MEDS: APIXABAN 5 MG TABLET PO (21:35)
[2020-06-03 21:45] LABS: Bedside Glucose 131 mg/dL (70-110)
[2020-06-04] VITALS: PULSE 65
[2020-06-04 01:51] LABS: Bedside Glucose 177 mg/dL (70-110)
[2020-06-04 03:22] VITALS: BP 125/59; PULSE 64; RESP 18; TEMP 36.6; O2SAT 97
[2020-06-04] MEDS: oxyCODONE 5 MG Tablet PO ×2 (03:25→10:28)
[2020-06-04 04:00] VITALS: PULSE 65
[2020-06-04] MEDS: Insulin Lispro 100 UNIT/ML INSULN.PEN SC ×2 (06:54→11:13)
[2020-06-04 07:06] LABS: Bedside Glucose 163 mg/dL (70-110)
--- NOTE | 2020-06-04 07:57 | PCM.TXEXTCAR ---
- Diet 06/02/20 08:05 Diet: Cardiac: Calorie-Controlled Is pt able to select menu?: Yes How many daily calories?: 1800 calorie - Wound(s) left elbow Wound Type: Abrasion LEFT HIP Wound Type: Surgical Incision - Suggestions for Active Care Change Position every (hours): 3 Hours to sit in a chair: 2 Times a day to sit in chair: 3 - Therapies Weight Bearing: Toe-touch weight bearing Physical Therapy: Eval and Treat Occupational Therapy: Eval and Treat - Problem/Diagnosis (1) Congestive heart failure (CHF) Status: Chronic Current Visit: Yes (2) Gout Status: Chronic Current Visit: Yes (3) Fracture of femoral neck, left Status: Acute Current Visit: Yes (4) HTN (hypertension) Status: Chronic Current Visit: Yes - Allergies/Procedures Done in Hospital Allergies/Adverse Reactions: Allergies Penicillins Allergy (Verified 05/31/20 13:03) Rash - Type of Care/Length of Stay Estimated LOS: Convalescent Care Less Than 30 days Type of Care Needed: Skilled Rehab Potential: Fair Prognosis: Fair - Additional Orders/Day of Discharge H&P will serve as current which was dated: 05/31/20 Day of Discharge: 06/04/20 - Follow Up Care Primary Care Physician: Annie Garcia DO [Primary Care Provider] - Please follow up with your Primary Care Physician in: 1 week. Please Follow Up With: Hyacinth Lozada DO When: 2 weeks.
[2020-06-04 08:04] VITALS: BP 161/73; PULSE 66; RESP 18; TEMP 36.7; O2SAT 98
[2020-06-04] MEDS: Aspirin 81 MG TAB.CHEW PO (08:08)
[2020-06-04] MEDS: hydroCHLOROthiazide 12.5mg 12.5 MG PO (08:08)
[2020-06-04] MEDS: APIXABAN 5 MG TABLET PO (08:08)
[2020-06-04] MEDS: metFORMIN HCl 500 MG Tablet PO (08:08)
[2020-06-04] MEDS: Atenolol 50 MG Tablet PO (08:08)
[2020-06-04] MEDS: Lisinopril 20 MG Tablet PO (08:09)
[2020-06-04] MEDS: Ondansetron 4 MG/2 ML Vial IV (10:29)
[2020-06-04] MEDS: 0.9% Saline Lock 10 ML Syringe IV (10:29)
--- NOTE | 2020-06-04 10:31 | PCM.DC.SUM ---
Discharge Date and Diagnosis - Problem List Patient Problems: Active and Suspected Problems Fracture of femoral neck, left (Acute) Date of Admission: 05/31/20 Date of Discharge: 06/04/20 - Primary Discharge Diagnosis Acute Problems: Active Problems #1 acute traumatic left femoral neck fracture, status post open reduction and internal fixation. #2 acute DVT of the left lower extremity. #3 newly diagnosed type 2 diabetes mellitus. #4 chronic CHF, unspecified. - Secondary Discharge Diagnosis Chronic Problems: Chronic Problems Congestive heart failure (CHF) (Chronic) Gout (Chronic) HTN (hypertension) (Chronic) Hospital Course and Treatment Imaging Results: Clinical Impression(s) from Imaging Studies Hip/Pelvis X-Ray 05/31/20 10:28 IMPRESSION: Acute curvilinear fracture of the left femoral neck extending down to the left femoral intertrochanteric bone near the lesser trochanter. Electronically Signed: Leobardo Cardoza MD at 11:35 EDT , Service support , Chest X-Ray 05/31/20 10:50 IMPRESSION: 1. No acute cardiopulmonary pathology given the limited inspiratory effort. 2. No significant interval change when compared to 06/14/2016. Electronically Signed: Leobardo Cardoza MD at 11:26 EDT , Service support , Lower Extremity CT 05/31/20 12:04 IMPRESSION: 1. Left femoral neck fracture, as above. Electronically Signed: John Franco MD ([place]) at 12:58 EDT , Service support , Hip/Pelvis X-Ray 06/01/20 13:40 IMPRESSION: Spot images obtained for hardware localization. Electronically Signed: Erin Vega MD at 19:50 EDT Tel , Service support , Hip X-Ray 06/01/20 16:32 IMPRESSION: Anatomic alignment status post ORIF. Electronically Signed: Erin Vega MD at 19:50 EDT Tel , Service support , Wrist X-Ray 06/02/20 09:46 IMPRESSION: Degenerative changes. No acute abnormality is seen. Electronically Signed: Earl Santizo, at 14:16 EDT , Service support , Dr. Lozada, orthopedic surgery. Dr. Etienne, cardiology. Operations: - - Open reduction and internal fixation of left femoral neck fracture. Procedures: 2-D Echocardiogram, EKG Summary of Care Provided: Patient seen and examined on the day of discharge and appeared to be stable to be discharged to half-way facility. Her left hip pain is manageable with current pain medication regimen. Denied chest pain or shortness of breath. Denied abdominal pain, nausea or vomiting. Her vital signs are stable. The patient is a 84 year old F presented to the emergency room because of fall followed by left hip pain and she was found to have acute traumatic left femoral neck fracture. Patient complained of left wrist pain and swelling for which x-ray of the left wrist done and showed no acute fractures. Preoperatively, she had an EKG done which showed no acute ischemic changes. She will history of congestive heart failure for which 2D echocardiogram done and revealed ejection fraction of 65%, stage I diastolic dysfunction, RVSP 40 consistent with mild pulmonary hypertension and also showed mild aortic stenosis. Orthopedic surgery consulted and patient under went open reduction and internal fixation of left femoral neck fracture. Her postoperative course was benign without significant complications. She complained of left leg swelling for which Doppler ultrasound done and revealed acute DVT of the posterior tibial vein, peroneal vein and gastrocnemius vein. Patient was started on Eliquis for anticoagulation. Postoperative routine blood work was unremarkable. Patient was found to have newly diagnosed type 2 diabetes mellitus. Her blood sugar has been in the range of up to 200. Hemoglobin A1c was 7.3% consistent with type 2 diabetes. Patient was started on metformin and blood sugar remained in the range of 1 50-200. Patient discharged to half-way facility in a stable medical condition, discharged on Eliquis 5 mg p.o. twice daily for anticoagulation for acute DVT of the left leg as well as for DVT prophylaxis given her left femoral neck fracture post surgery, was not given loading dose of Eliquis because of recent surgery, discharged on metformin 500 mg p.o. twice daily for newly diagnosed type 2 diabetes mellitus, discharged on OxyIR PRN for pain, plan to follow-up with orthopedic surgery as outpatient in 2 weeks, recommended follow-up with PCP in 1 week. Patient Problems: Active and Suspected Problems Fracture of femoral neck, left (Acute) - Physical Exam Vitals/I&O's: Vital Signs Temp Pulse Resp BP Pulse Ox 98.1 F 66 18 161/73 H 98 06/04/20 08:04 06/04/20 08:04 06/04/20 08:04 06/04/20 08:04 06/04/20 08:04 Oxygen Flow Rate (L/min) 2 Oxygen Delivery Method Room Air Weight: 190 lb 0.227 oz Body Mass Index (BMI) 34.7 Finger Stick Blood Glucose 144 Intake and Output for Last 24 Hours 06/02/20 06/03/20 06/04/20 23:59 23:59 23:59 Intake Total 1816.25 / 1916.25 1200 / 1400 350 / 350 Output Total 625 / 625 50 / 250 200 / 200 Balance 1191.25 / 1291.25 1150 / 1150 150 / 150 General: Alert, Oriented x3, Cooperative, No apparent distress HEENT: Atraumatic, PERRLA, EOMI, Normocephalic Oral: Moist Mucosa, No Gingival or Mucosal Lesions/ Ulcerations Neck: Supple, No JVD, Negative Carotid Bruits, Trachea Midline, Thyroid Normal Size and Texture Lungs: Clear to auscultation, Normal air movement, No rhonchi, No wheeze, No rales, Diminished Cardiovascular: Regular rate, Regular Rhythm, Normal S1, Normal S2, PMI Normal Abdomen: Bowel Sounds Present, Soft, Non Tender, Non-Distended, No Hepato-splenomegaly, Obese Extremities: No clubbing, No cyanosis, No edema Skin: No rashes, No breakdown Lymphatic: No Cervical, Supraclavicular, or Inguinal Adenopathy Neurological: Cranial nerves II-XII grossly intact, Neuro grossly intact Psych/Mental Status: Normal Affect, Appropriate Laboratory Results 06/03/20 06:50: POC Glucose 177 H 06/03/20 11:34: POC Glucose 204 H 06/03/20 16:41: POC Glucose 222 H 06/03/20 21:22: POC Glucose 131 H 06/04/20 06:52: POC Glucose 163 H Current Medications Acetaminophen (Tylenol) 650 mg PO Q6H PRN PRN PRN Reason: Pain Score 1-10/Temp > 100.7 F Last Admin: 06/03/20 21:34 Dose: 650 mg Documented by: Apixaban (Eliquis) 5 mg PO BID [facility] Last Admin: 06/04/20 08:08 Dose: 5 mg Documented by: Aspirin (Aspirin, Baby) 81 mg PO DAILY@0800 [facility] Last Admin: 06/04/20 08:08 Dose: 81 mg Documented by: Atenolol (Tenormin (Beta Geovany)) 50 mg PO BID [facility] Last Admin: 06/04/20 08:08 Dose: 50 mg Documented by: Dextrose (D50w Syringe) 0 gm IV X1 PRN; Protocol PRN Reason: Hypoglycemia Glucagon () 1 mg IM .X1 PRN PRN Reason: Hypoglycemia Hydrochlorothiazide () 12.5 mg PO DAILY [facility] Last Admin: 06/04/20 08:08 Dose: 12.5 mg Documented by: Hydromorphone HCl (Dilaudid Inj) 0.5 mg IV Q3H PRN PRN PRN Reason: Pain Score 6-10/10 Last Admin: 06/02/20 06:31 Dose: 0.5 mg Documented by: Sodium Chloride () 250 mls @ 15 mls/hr IV .[id number] PRN PRN Reason: Saline Flush Sodium Chloride () 250 mls @ 15 mls/hr IV .[id number] PRN PRN Reason: Additional IVPB Infusion Insulin Human Lispro (Humalog Kwikpen (Bkc)) 0 unit SC ACHS [facility]; Protocol Last Admin: 06/04/20 06:54 Dose: 1 units Documented by: Lisinopril (Zestril) 20 mg PO DAILY [facility] Last Admin: 06/04/20 08:09 Dose: 20 mg Documented by: [facility] Last Admin: 06/04/20 08:08 Dose: 500 mg Documented by: Ondansetron HCl (Zofran) 4 mg IV Q8H PRN PRN PRN Reason: NAUSEA/VOMITING Last Admin: 06/04/20 10:29 Dose: 4 mg Documented by: Oxycodone HCl (Oxyir) 5 mg PO Q4H PRN PRN PRN Reason: Pain Score 4-5/10 Last Admin: 06/04/20 10:28 Dose: 5 mg Documented by: Senna/Docusate Sodium (Senokot-S, Raeann-Colace) 2 tablet PO BID PRN PRN PRN Reason: Constipation Sodium Chloride () 10 - 40 ml IV UD PRN PRN Reason: SALINE FLUSH Last Admin: 06/04/20 10:29 Dose: 10 ml Documented by: Zolpidem Tartrate (Ambien (Generic)) 5 mg PO QHS PRN PRN PRN Reason: INSOMNIA Home Medications: Medications to take at Discharge Allopurinol 300 mg PO DAILY 05/31/20 Aspirin [Aspirin, Baby] 81 mg PO DAILY@0800 05/31/20 Atenolol [Tenormin] 50 mg PO BID 05/31/20 Lisinopril/Hydrochlorothiazide [Lisinopril-Hctz 20-12.5 mg Tab] 1 tab PO DAILY 05/31/20 Apixaban [Eliquis] 5 mg PO BID #90 tab 06/04/20 Oxycodone [Oxyir] 5 mg PO Q6H PRN PRN 5 Days #20 tab 06/04/20 Senna/Docusate Sodium [Senokot-S] 2 tab PO BID PRN PRN #1 tab 06/04/20 metFORMIN HCl [Glucophage] 500 mg PO BIDCM #90 tab 06/04/20 Following Prescrptions Were Given to Patient: Apixaban [Eliquis] 5 mg PO BID #90 tab Prescription Printed metFORMIN HCl [Glucophage] 500 mg PO BIDCM #90 tab Prescription Printed Oxycodone [Oxyir] 5 mg PO Q6H PRN PRN 5 Days #20 tab PRN Reason: Pain Score 4-5/10 Prescription Printed Senna/Docusate Sodium [Senokot-S] 2 tab PO BID PRN PRN #1 tab PRN Reason: Constipation Prescription Printed Primary Care Physician: Annie Garcia DO [Primary Care Provider] - Please follow up with your Primary Care Physician in: 1 week. Please Follow Up With: Hyacinth Lozada, When: 2 weeks. Disposition: Senior Care facility Minutes spent on discharge:: 33 Patient Condition:: Stable Medical Necessity - Tobacco Use Smoking Status: Never smoker Meaningful Use Info Meaningful Use Diagnoses (Choose all that apply): None applicable Inpatient E&M: 90181 Disch Hosp
--- NOTE | 2020-06-04 10:55 | CASEMGMT ---
Social Work Pt ready for discharge on this date. Orders faxed to [facility] and transportation arranged with [facility] for 1330 pickup. SW met with pt and son and updated and they are agreeable to transfer. VM left with Mercedez at [facility] with time of d/c. Nurse made aware. Plan: [facility], D/C today BRITTANY Lindsey
--- NOTE | 2020-06-04 11:32 | PHA.DC.MR ---
Pharmacy Service has performed discharge medication reconciliation for this patient. The patient's discharge medication list was reviewed for discrepancies and discrepancies were resolved. Home Medications Allopurinol 300 mg PO DAILY 05/31/20 Aspirin [Aspirin, Baby] 81 mg PO DAILY@0800 05/31/20 Atenolol [Tenormin] 50 mg PO BID 05/31/20 Lisinopril/Hydrochlorothiazide [Lisinopril-Hctz 20-12.5 mg Tab] 1 tab PO DAILY 05/31/20 Apixaban [Eliquis] 5 mg PO BID #90 tab 06/04/20 Oxycodone [Oxyir] 5 mg PO Q6H PRN PRN 5 Days #20 tab 06/04/20 Senna/Docusate Sodium [Senokot-S] 2 tab PO BID PRN PRN #1 tab 06/04/20 metFORMIN HCl [Glucophage] 500 mg PO BIDCM #90 tab 06/04/20
[2020-06-04 11:45] LABS: Bedside Glucose 237 mg/dL (70-110)
[2020-06-04 13:32] VITALS: O2SAT 93
== END 2020-06-04 14:52 | disposition skilled nursing facility (03) | DRG 481 ==
LOC: ED 12:11 → MS3 12:21
PROVIDERS: Anesthesiology; Internal Medicine Cardiovascular Disease; Orthopaedic Surgery; Admitting Provider Hospitalist; Emergency Provider Physician Assistant Medical; PCP Family Medicine; Visit Provider Hospitalist
PROC: 0QS704Z Reposition Left Upper Femur with Internal Fixation Device, Open Approach (ICD-10-PCS; CPT 27236; principal; 2020-06-01 13:00)
DX: S72.012A Unspecified intracapsular fracture of left femur, initial encounter for closed fracture (principal); I82.402 Acute embolism and thrombosis of unspecified deep veins of left lower extremity; I82.442 Acute embolism and thrombosis of left tibial vein; W18.09XA Striking against other object with subsequent fall, initial encounter; Y93.01 Activity, walking, marching and hiking; Y92.480 Sidewalk as the place of occurrence of the external cause; Y99.8 Other external cause status; I11.0 Hypertensive heart disease with heart failure; Z86.718 Personal history of other venous thrombosis and embolism; Z79.899 Other long term (current) drug therapy; M10.9 Gout, unspecified; I50.9 Heart failure, unspecified; E11.65 Type 2 diabetes mellitus with hyperglycemia; I27.20 Pulmonary hypertension, unspecified
CPT/HCPCS: 36415; 71045; 73110; 73502; 73700; 76000; 80048; 80061; 82962; 83036; 85014; 85018; 85025; 85610; 85730; 86850; 86900; 86901; 87635; 90715; 93005; 93306; 93971; 97110; 97163; 97166; 97530; 99251; 99285; C1713; G2023; J7030; Q9957; A4216; G0463; J2405; U0003

== ENCOUNTER → 2020-06-17 | Outpatient (CLI) | payer MEDICARE, OTHER, SELFPAY ==
[2020-06-17 10:21] VITALS: BMI 34.7
--- NOTE | 2020-06-17 10:22 | RAD_ITS ---
STUDY: X-RAY - PELVIS AND LEFT HIP REASON FOR EXAM: Follow-up of ORIF left femoral fracture. TECHNIQUE: 2 views of the pelvis and hip. COMPARISON: Radiographs 06/01/2020. FINDINGS: There are overlying skin darryl. There is vascular calcification. There are degenerative changes of the right sacroiliac joint. Normal bilateral superior and inferior pubic rami. There are degenerative changes of the pubic symphysis. Normal bilateral ischial tuberosities. There is no interval change of the orthopedic hardware transfixing a fracture at the base of the left femoral neck. Normal acetabulum. Normal hip joint. RAD/HIP, UNI W/ Pelvis 2-3 Views IMPRESSION: No interval change of ORIF of left femoral fracture. Electronically Signed: Gibran Turner MD at 10:49 EDT Tel , Service support ,
== END | disposition home or self-care (01) ==
LOC: HPRAD 10:21
PROVIDERS: PCP Family Medicine; Referring Provider Orthopaedic Surgery; Visit Provider Orthopaedic Surgery
DX: S72.002A Fracture of unspecified part of neck of left femur, initial encounter for closed fracture (principal)
CPT/HCPCS: 73502

== ENCOUNTER → 2020-07-24 | Outpatient (CLI) | payer MEDICARE, OTHER, SELFPAY ==
[2020-06-17 10:22] VITALS: BMI 34.7
--- NOTE | 2020-07-24 11:09 | RAD_ITS ---
STUDY: X-RAY - LEFT WRIST REASON FOR EXAM: Follow-up left wrist injury. TECHNIQUE: 3 view(s) of the wrist were obtained. COMPARISON: Radiographs 06/02/2020. FINDINGS: There is osteopenia. Normal visualized distal radius and ulna. Normal radiocarpal articulation. Normal distal radioulnar articulation. There is interval development of a subtle radiolucency with mild adjacent sclerosis of the mid scaphoid, a possible nondisplaced fracture. There is severe joint space narrowing of the triscaphe articulation. There is a cyst in the lunate. There are marginal osteophytes and moderate to severe joint space narrowing of the carpometacarpal articulation of the thumb. Normal second through fifth carpometacarpal articulations. Normal visualized metacarpal bones. There is chondrocalcinosis in the triangular fibrocartilage and lunotriquetral ligament. RAD/Wrist min 3 Views IMPRESSION: Interval development of subtle radiolucency with mild adjacent sclerosis of the mid scaphoid, a possible nondisplaced fracture. 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 Chondrocalcinosis. Electronically Signed: Gibran Turner MD at 13:45 EDT Tel , Service support ,
--- NOTE | 2020-07-24 11:09 | RAD_ITS ---
STUDY: X-RAY - PELVIS AND LEFT HIP REASON FOR EXAM: Follow-up ORIF left femoral fracture. TECHNIQUE: 2 views of the pelvis and hip. COMPARISON: Radiographs 06/17/2020. FINDINGS: There is vascular calcification. There are degenerative changes of the right sacroiliac joint. Normal bilateral superior and inferior pubic rami. There are degenerative changes of the pubic symphysis. Normal bilateral ischial tuberosities. There is no interval change of the orthopedic hardware transfixing a fracture at the base of the left femoral neck. Normal acetabulum. Normal hip joint. RAD/HIP, UNI W/ Pelvis 2-3 Views IMPRESSION: No interval change of ORIF of left femoral fracture. Electronically Signed: Gibran Turner MD at 12:11 EDT Tel , Service support ,
== END | disposition home or self-care (01) ==
LOC: HPRAD 11:09
PROVIDERS: PCP Family Medicine; Referring Provider Orthopaedic Surgery; Visit Provider Orthopaedic Surgery
DX: M25.532 Pain in left wrist (principal); S72.002A Fracture of unspecified part of neck of left femur, initial encounter for closed fracture
CPT/HCPCS: 73110; 73502

== ENCOUNTER → 2020-08-05 04:00 | Outpatient (REF) | payer MEDICARE, OTHER, SELFPAY ==
[2020-07-24 11:11] VITALS: BMI 34.7
[2020-08-05 08:35] LABS: Hematocrit 33.1 % (37-47); Hemoglobin 10.1 g/dL (12.0-15.0); Mean Corp Hgb Conc 30.5 g/dL (32-36); Mean Corpuscular Hgb 28.5 pg (27.0-32.0); Mean Corpuscular Volume 93.5 fL (81-99); Mean Platelet Vol. 9.3 fl (6.2-12.0); Platelet Count 356 K/mm3 (150-450); RBC Distribution Width SD 57.6 fl (35.1-43.9); Red Blood Count 3.54 M/mm3 (4.2-5.4); White Blood Count 9.3 K/mm3 (4.4-11.0)
[2020-08-05 09:27] LABS: Anion Gap 6 (5-15); BUN 19 mg/dL (7-18); BUN/Creat Ratio 19.8 RATIO (10-20); Calcium,Total 9.9 mg/dL (8.5-10.1); Chloride 108 mmol/L (98-107); Creatinine, Serum 0.96 mg/dL (0.55-1.02); EST Glomerular Filtration Rate 59 mL/min (>60); Est Glom Filt Rate - Afr Amer 71 mL/min (>60); Glucose 94 mg/dL (74-106); Potassium 4.8 mmol/L (3.5-5.1); Sodium Level 140 mmol/L (136-145)
== END ==
LOC: OLS.WHLCAR 04:00
PROVIDERS: PCP Family Medicine; Referring Provider Family Medicine; Visit Provider Family Medicine
DX: Z47.89 Encounter for other orthopedic aftercare (principal); S72.045D Nondisplaced fracture of base of neck of left femur, subsequent encounter for closed fracture with routine healing; S63.92XD Sprain of unspecified part of left wrist and hand, subsequent encounter; E11.9 Type 2 diabetes mellitus without complications
CPT/HCPCS: 36415; 80048; 85027

== ENCOUNTER → 2020-08-11 04:00 | Outpatient (REF) | payer MEDICARE, OTHER, SELFPAY ==
[2020-07-24 11:11] VITALS: BMI 34.7
[2020-08-11 08:27] LABS: Anion Gap 7 (5-15); BUN 14 mg/dL (7-18); BUN/Creat Ratio 17.4 RATIO (10-20); Calcium,Total 9.6 mg/dL (8.5-10.1); Chloride 107 mmol/L (98-107); EST Glomerular Filtration Rate 72 mL/min (>60); Est Glom Filt Rate - Afr Amer 87 mL/min (>60); Glucose 101 mg/dL (74-106); Potassium 4.3 mmol/L (3.5-5.1); Sodium Level 138 mmol/L (136-145)
[2020-08-11 08:44] LABS: Hematocrit 33.4 % (37-47); Hemoglobin 10.2 g/dL (12.0-15.0); Mean Corp Hgb Conc 30.5 g/dL (32-36); Mean Corpuscular Hgb 28.9 pg (27.0-32.0); Mean Corpuscular Volume 94.6 fL (81-99); Mean Platelet Vol. 9.6 fl (6.2-12.0); Platelet Count 317 K/mm3 (150-450); RBC Distribution Width CV 17.3 % (11.6-14.6); RBC Distribution Width SD 59.1 fl (35.1-43.9); Red Blood Count 3.53 M/mm3 (4.2-5.4)
== END ==
LOC: OLS.WHLCAR 04:00
PROVIDERS: Referring Provider Family Medicine; Visit Provider Family Medicine
DX: Z47.89 Encounter for other orthopedic aftercare (principal); S72.045D Nondisplaced fracture of base of neck of left femur, subsequent encounter for closed fracture with routine healing; S63.92XD Sprain of unspecified part of left wrist and hand, subsequent encounter; R19.7 Diarrhea, unspecified
CPT/HCPCS: 36415; 80048; 85027

== ENCOUNTER → 2020-08-25 05:00 | Outpatient (REF) | payer MEDICARE, OTHER, SELFPAY ==
[2020-07-24 11:11] VITALS: BMI 34.7
[2020-08-25 06:37] LABS: Hematocrit 32.2 % (37-47); Hemoglobin 9.8 g/dL (12.0-15.0); Mean Corp Hgb Conc 30.4 g/dL (32-36); Mean Corpuscular Hgb 29.4 pg (27.0-32.0); Mean Corpuscular Volume 96.7 fL (81-99); Mean Platelet Vol. 9.2 fl (6.2-12.0); POSITIVE MORPHOLOGY YES; Platelet Count 269 K/mm3 (150-450); RBC Distribution Width CV 18.3 % (11.6-14.6); RBC Distribution Width SD 65.1 fl (35.1-43.9); Red Blood Count 3.33 M/mm3 (4.2-5.4); Scan Indicated on CBC? Y/N YES- FLAGS NOTED; White Blood Count 9.2 K/mm3 (4.4-11.0)
[2020-08-25 06:59] LABS: Differential Comment SCANNED
[2020-08-25 07:00] LABS: Anion Gap 4 (5-15); BUN 16 mg/dL (7-18); BUN/Creat Ratio 22.9 RATIO (10-20); Calcium,Total 9.7 mg/dL (8.5-10.1); Chloride 109 mmol/L (98-107); EST Glomerular Filtration Rate 85 mL/min (>60); Est Glom Filt Rate - Afr Amer 102 mL/min (>60); Glucose 110 mg/dL (74-106); Potassium 4.2 mmol/L (3.5-5.1); Sodium Level 138 mmol/L (136-145)
== END ==
LOC: OLS.WHLCAR 05:00
PROVIDERS: PCP Family Medicine; Visit Provider Family Medicine
DX: Z47.89 Encounter for other orthopedic aftercare (principal); S72.045D Nondisplaced fracture of base of neck of left femur, subsequent encounter for closed fracture with routine healing; S63.92XD Sprain of unspecified part of left wrist and hand, subsequent encounter
CPT/HCPCS: 36415; 80048; 85027

== ENCOUNTER → 2020-09-01 04:00 | Outpatient (REF) | payer MEDICARE, SELFPAY ==
[2020-07-24 11:11] VITALS: BMI 34.7
[2020-09-01 07:06] LABS: Hematocrit 32.3 % (37-47); Hemoglobin 9.8 g/dL (12.0-15.0); Mean Corp Hgb Conc 30.3 g/dL (32-36); Mean Corpuscular Hgb 29.7 pg (27.0-32.0); Mean Corpuscular Volume 97.9 fL (81-99); Mean Platelet Vol. 9.7 fl (6.2-12.0); Platelet Count 259 K/mm3 (150-450); RBC Distribution Width CV 18.2 % (11.6-14.6); White Blood Count 8.9 K/mm3 (4.4-11.0)
[2020-09-01 07:22] LABS: Hemoglobin A1c 5.8 % (3.8-5.6)
[2020-09-01 07:32] LABS: Anion Gap 5 (5-15); BUN 21 mg/dL (7-18); BUN/Creat Ratio 28.8 RATIO (10-20); Calcium,Total 9.9 mg/dL (8.5-10.1); Chloride 108 mmol/L (98-107); Creatinine, Serum 0.73 mg/dL (0.55-1.02); EST Glomerular Filtration Rate 80 mL/min (>60); Est Glom Filt Rate - Afr Amer 97 mL/min (>60); Glucose 105 mg/dL (74-106); Potassium 4.4 mmol/L (3.5-5.1); Sodium Level 136 mmol/L (136-145); Uric Acid 3.9 mg/dL (2.6-6.0)
== END ==
LOC: OLS.WHLCAR 04:00
PROVIDERS: PCP Family Medicine; Visit Provider Family Medicine
DX: Z47.89 Encounter for other orthopedic aftercare (principal); S72.045D Nondisplaced fracture of base of neck of left femur, subsequent encounter for closed fracture with routine healing; S63.92XD Sprain of unspecified part of left wrist and hand, subsequent encounter; I10 Essential (primary) hypertension; Z79.899 Other long term (current) drug therapy
CPT/HCPCS: 36415; 80048; 83036; 84550; 85027

== ENCOUNTER → 2020-09-08 05:00 | Outpatient (REF) | payer MEDICARE, OTHER, SELFPAY ==
[2020-07-24 11:11] VITALS: BMI 34.7
[2020-09-08 09:23] LABS: Hemoglobin 10.2 g/dL (12.0-15.0); Mean Corpuscular Hgb 29.5 pg (27.0-32.0); Mean Corpuscular Volume 98.3 fL (81-99); Mean Platelet Vol. 9.6 fl (6.2-12.0); POSITIVE MORPHOLOGY YES; Platelet Count 238 K/mm3 (150-450); RBC Distribution Width CV 18.2 % (11.6-14.6); RBC Distribution Width SD 65.2 fl (35.1-43.9); Red Blood Count 3.46 M/mm3 (4.2-5.4); White Blood Count 9.6 K/mm3 (4.4-11.0)
[2020-09-08 09:26] LABS: Scan Indicated on CBC? Y/N YES- FLAGS NOTED
[2020-09-08 09:42] LABS: Anion Gap 5 (5-15); BUN 18 mg/dL (7-18); BUN/Creat Ratio 21.9 RATIO (10-20); Chloride 106 mmol/L (98-107); Creatinine, Serum 0.82 mg/dL (0.55-1.02); EST Glomerular Filtration Rate 70 mL/min (>60); Est Glom Filt Rate - Afr Amer 85 mL/min (>60); Glucose 93 mg/dL (74-106); Potassium 4.1 mmol/L (3.5-5.1); Sodium Level 138 mmol/L (136-145)
[2020-09-08 10:05] LABS: Differential Comment SCANNED
== END ==
LOC: OLS.WHLCAR 05:00
PROVIDERS: PCP Family Medicine; Visit Provider Family Medicine
DX: Z47.89 Encounter for other orthopedic aftercare (principal); S72.045D Nondisplaced fracture of base of neck of left femur, subsequent encounter for closed fracture with routine healing; S63.92XD Sprain of unspecified part of left wrist and hand, subsequent encounter
CPT/HCPCS: 36415; 80048; 85027

== ENCOUNTER → 2020-09-15 05:00 | Outpatient (REF) | payer MEDICARE, OTHER, SELFPAY ==
[2020-07-24 11:11] VITALS: BMI 34.7
[2020-09-15 07:51] LABS: Hematocrit 33.4 % (37-47); Hemoglobin 10.2 g/dL (12.0-15.0); Mean Corp Hgb Conc 30.5 g/dL (32-36); Mean Corpuscular Hgb 29.8 pg (27.0-32.0); Mean Corpuscular Volume 97.7 fL (81-99); Mean Platelet Vol. 9.5 fl (6.2-12.0); Platelet Count 230 K/mm3 (150-450); RBC Distribution Width CV 17.6 % (11.6-14.6); RBC Distribution Width SD 63.1 fl (35.1-43.9); Red Blood Count 3.42 M/mm3 (4.2-5.4); White Blood Count 10.1 K/mm3 (4.4-11.0)
[2020-09-15 08:04] LABS: Anion Gap 6 (5-15); BUN 14 mg/dL (7-18); BUN/Creat Ratio 17.9 RATIO (10-20); Calcium,Total 10.2 mg/dL (8.5-10.1); Chloride 109 mmol/L (98-107); Creatinine, Serum 0.78 mg/dL (0.55-1.02); EST Glomerular Filtration Rate 74 mL/min (>60); Est Glom Filt Rate - Afr Amer 90 mL/min (>60); Glucose 121 mg/dL (74-106); Potassium 4.3 mmol/L (3.5-5.1); Sodium Level 139 mmol/L (136-145)
== END ==
LOC: OLS.WHLCAR 05:00
PROVIDERS: PCP Family Medicine; Visit Provider Family Medicine
DX: S72.045D Nondisplaced fracture of base of neck of left femur, subsequent encounter for closed fracture with routine healing (principal); S63.92XD Sprain of unspecified part of left wrist and hand, subsequent encounter; Z47.89 Encounter for other orthopedic aftercare
CPT/HCPCS: 36415; 80048; 85027

== ENCOUNTER → 2020-09-22 04:00 | Outpatient (REF) | payer MEDICARE, OTHER, SELFPAY ==
[2020-07-24 11:11] VITALS: BMI 34.7
[2020-09-22 07:04] LABS: Hemoglobin 11.2 g/dL (12.0-15.0); Mean Corp Hgb Conc 30.3 g/dL (32-36); Mean Corpuscular Hgb 29.8 pg (27.0-32.0); Mean Corpuscular Volume 98.4 fL (81-99); Mean Platelet Vol. 9.9 fl (6.2-12.0); Platelet Count 251 K/mm3 (150-450); RBC Distribution Width CV 17.4 % (11.6-14.6); RBC Distribution Width SD 63.9 fl (35.1-43.9); Red Blood Count 3.76 M/mm3 (4.2-5.4); White Blood Count 8.8 K/mm3 (4.4-11.0)
[2020-09-22 07:32] LABS: Anion Gap 8 (5-15); BUN 16 mg/dL (7-18); BUN/Creat Ratio 17.6 RATIO (10-20); Calcium,Total 10.3 mg/dL (8.5-10.1); Chloride 111 mmol/L (98-107); Creatinine, Serum 0.91 mg/dL (0.55-1.02); EST Glomerular Filtration Rate 63 mL/min (>60); Est Glom Filt Rate - Afr Amer 76 mL/min (>60); Glucose 103 mg/dL (74-106); Potassium 4.3 mmol/L (3.5-5.1); Sodium Level 140 mmol/L (136-145)
== END ==
LOC: OLS.WHLCAR 04:00
PROVIDERS: PCP Family Medicine; Referring Provider Family Medicine; Visit Provider Family Medicine
DX: S72.045D Nondisplaced fracture of base of neck of left femur, subsequent encounter for closed fracture with routine healing (principal); Z47.89 Encounter for other orthopedic aftercare; S63.92XD Sprain of unspecified part of left wrist and hand, subsequent encounter
CPT/HCPCS: 36415; 80048; 85027

== ENCOUNTER → 2020-09-29 05:00 | Outpatient (REF) | payer MEDICARE, OTHER, SELFPAY ==
[2020-07-24 11:11] VITALS: BMI 34.7
[2020-09-29 08:08] LABS: Hematocrit 37.4 % (37-47); Hemoglobin 11.3 g/dL (12.0-15.0); Mean Corp Hgb Conc 30.2 g/dL (32-36); Mean Corpuscular Hgb 29.7 pg (27.0-32.0); Mean Corpuscular Volume 98.2 fL (81-99); Mean Platelet Vol. 10.1 fl (6.2-12.0); Platelet Count 208 K/mm3 (150-450); RBC Distribution Width SD 61.2 fl (35.1-43.9); Red Blood Count 3.81 M/mm3 (4.2-5.4); White Blood Count 8.8 K/mm3 (4.4-11.0)
[2020-09-29 08:35] LABS: Anion Gap 8 (5-15); BUN 15 mg/dL (7-18); BUN/Creat Ratio 16.8 RATIO (10-20); Calcium,Total 10.8 mg/dL (8.5-10.1); Chloride 111 mmol/L (98-107); Creatinine, Serum 0.89 mg/dL (0.55-1.02); EST Glomerular Filtration Rate 64 mL/min (>60); Est Glom Filt Rate - Afr Amer 77 mL/min (>60); Glucose 115 mg/dL (74-106); Potassium 4.4 mmol/L (3.5-5.1); Sodium Level 138 mmol/L (136-145)
== END ==
LOC: OLS.WHLCAR 05:00
PROVIDERS: PCP Family Medicine; Visit Provider Family Medicine
DX: Z47.89 Encounter for other orthopedic aftercare (principal); S72.045D Nondisplaced fracture of base of neck of left femur, subsequent encounter for closed fracture with routine healing; S63.92XD Sprain of unspecified part of left wrist and hand, subsequent encounter
CPT/HCPCS: 36415; 80048; 85027

== ENCOUNTER → 2020-10-06 05:00 | Outpatient (REF) | payer MEDICARE, OTHER, SELFPAY ==
[2020-07-24 11:11] VITALS: BMI 34.7
[2020-10-06 08:38] LABS: Hematocrit 35.5 % (37-47); Hemoglobin 10.8 g/dL (12.0-15.0); Mean Corp Hgb Conc 30.4 g/dL (32-36); Mean Corpuscular Hgb 29.8 pg (27.0-32.0); Mean Corpuscular Volume 98.1 fL (81-99); Mean Platelet Vol. 9.9 fl (6.2-12.0); Platelet Count 216 K/mm3 (150-450); RBC Distribution Width CV 16.4 % (11.6-14.6); RBC Distribution Width SD 59.7 fl (35.1-43.9); Red Blood Count 3.62 M/mm3 (4.2-5.4); White Blood Count 8.7 K/mm3 (4.4-11.0)
[2020-10-06 09:12] LABS: Anion Gap 5 (5-15); BUN 21 mg/dL (7-18); BUN/Creat Ratio 20.6 RATIO (10-20); Calcium,Total 10.6 mg/dL (8.5-10.1); Chloride 110 mmol/L (98-107); Creatinine, Serum 1.02 mg/dL (0.55-1.02); EST Glomerular Filtration Rate 55 mL/min (>60); Est Glom Filt Rate - Afr Amer 66 mL/min (>60); Glucose 110 mg/dL (74-106); Potassium 4.4 mmol/L (3.5-5.1); Sodium Level 139 mmol/L (136-145)
== END ==
LOC: OLS.WHLCAR 05:00
PROVIDERS: PCP Family Medicine; Visit Provider Family Medicine
DX: Z47.89 Encounter for other orthopedic aftercare (principal); S72.045D Nondisplaced fracture of base of neck of left femur, subsequent encounter for closed fracture with routine healing; S63.92XD Sprain of unspecified part of left wrist and hand, subsequent encounter
CPT/HCPCS: 36415; 80048; 85027

== ENCOUNTER → 2020-10-13 04:00 | Outpatient (REF) | payer MEDICARE, OTHER, SELFPAY ==
[2020-07-24 11:11] VITALS: BMI 34.7
[2020-10-13 07:37] LABS: Hematocrit 38.4 % (37-47); Hemoglobin 11.7 g/dL (12.0-15.0); Mean Corp Hgb Conc 30.5 g/dL (32-36); Mean Corpuscular Hgb 30.4 pg (27.0-32.0); Mean Corpuscular Volume 99.7 fL (81-99); Platelet Count 223 K/mm3 (150-450); RBC Distribution Width CV 15.9 % (11.6-14.6); RBC Distribution Width SD 58.4 fl (35.1-43.9); Red Blood Count 3.85 M/mm3 (4.2-5.4); White Blood Count 7.9 K/mm3 (4.4-11.0)
[2020-10-13 07:57] LABS: Anion Gap 7 (5-15); BUN 24 mg/dL (7-18); BUN/Creat Ratio 22.9 RATIO (10-20); Calcium,Total 10.2 mg/dL (8.5-10.1); Chloride 108 mmol/L (98-107); Creatinine, Serum 1.05 mg/dL (0.55-1.02); EST Glomerular Filtration Rate 53 mL/min (>60); Est Glom Filt Rate - Afr Amer 64 mL/min (>60); Glucose 80 mg/dL (74-106); Potassium 4.3 mmol/L (3.5-5.1); Sodium Level 135 mmol/L (136-145)
== END ==
LOC: OLS.WHLCAR 04:00
PROVIDERS: PCP Family Medicine; Referring Provider Family Medicine; Visit Provider Family Medicine
DX: Z47.89 Encounter for other orthopedic aftercare (principal); S72.045D Nondisplaced fracture of base of neck of left femur, subsequent encounter for closed fracture with routine healing; S63.92XD Sprain of unspecified part of left wrist and hand, subsequent encounter
CPT/HCPCS: 36415; 80048; 85027

== ENCOUNTER → 2020-12-01 05:00 | Outpatient (REF) | payer MEDICARE, OTHER, SELFPAY ==
[2020-07-24 11:11] VITALS: BMI 34.7
[2020-12-01 08:57] LABS: Hemoglobin 10.6 g/dL (12.0-15.0); Mean Corp Hgb Conc 30.3 g/dL (32-36); Mean Corpuscular Hgb 30.2 pg (27.0-32.0); Mean Corpuscular Volume 99.7 fL (81-99); Mean Platelet Vol. 10.7 fl (6.2-12.0); Platelet Count 258 K/mm3 (150-450); RBC Distribution Width CV 15.4 % (11.6-14.6); RBC Distribution Width SD 55.9 fl (35.1-43.9); Red Blood Count 3.51 M/mm3 (4.2-5.4); White Blood Count 8.7 K/mm3 (4.4-11.0)
[2020-12-01 09:08] LABS: Anion Gap 8 (5-15); BUN 30 mg/dL (7-18); BUN/Creat Ratio 21.4 RATIO (10-20); Chloride 109 mmol/L (98-107); EST Glomerular Filtration Rate 38 mL/min (>60); Est Glom Filt Rate - Afr Amer 46 mL/min (>60); Glucose 79 mg/dL (74-106); Potassium 4.8 mmol/L (3.5-5.1); Sodium Level 136 mmol/L (136-145)
== END ==
LOC: OLS.WHLCAR 05:00
PROVIDERS: PCP Family Medicine; Visit Provider Family Medicine
DX: I11.0 Hypertensive heart disease with heart failure (principal); U07.1 COVID-19; I50.32 Chronic diastolic (congestive) heart failure; L89.154 Pressure ulcer of sacral region, stage 4; F03.90 Unspecified dementia, unspecified severity, without behavioral disturbance, psychotic disturbance, mood disturbance, and anxiety; R13.12 Dysphagia, oropharyngeal phase
CPT/HCPCS: 36415; 80048; 85027

== ENCOUNTER → 2020-12-06 08:30 | Outpatient (REF) | payer MEDICARE, OTHER, SELFPAY ==
[2020-07-24 11:11] VITALS: BMI 34.7
[2020-12-06 09:26] LABS: Hematocrit 34.2 % (37-47); Hemoglobin 10.7 g/dL (12.0-15.0); Mean Corp Hgb Conc 31.3 g/dL (32-36); Mean Corpuscular Hgb 30.7 pg (27.0-32.0); Mean Corpuscular Volume 98.3 fL (81-99); Mean Platelet Vol. 10.4 fl (6.2-12.0); Platelet Count 193 K/mm3 (150-450); RBC Distribution Width CV 15.9 % (11.6-14.6); RBC Distribution Width SD 56.1 fl (35.1-43.9); Red Blood Count 3.48 M/mm3 (4.2-5.4); White Blood Count 8.3 K/mm3 (4.4-11.0)
[2020-12-06 09:51] LABS: Anion Gap 2 (5-15); BUN 26 mg/dL (7-18); BUN/Creat Ratio 18.2 RATIO (10-20); Calcium,Total 9.8 mg/dL (8.5-10.1); Chloride 114 mmol/L (98-107); Creatinine, Serum 1.43 mg/dL (0.55-1.02); EST Glomerular Filtration Rate 37 mL/min (>60); Est Glom Filt Rate - Afr Amer 45 mL/min (>60); Glucose 125 mg/dL (74-106); Potassium 4.8 mmol/L (3.5-5.1); Sodium Level 138 mmol/L (136-145); Uric Acid 2.4 mg/dL (2.6-6.0)
== END ==
LOC: OLS.WHLCAR 08:30
PROVIDERS: PCP Family Medicine; Visit Provider Family Medicine
DX: R48.8 Other symbolic dysfunctions (principal); U07.1 COVID-19; I50.32 Chronic diastolic (congestive) heart failure; L89.154 Pressure ulcer of sacral region, stage 4; F03.90 Unspecified dementia, unspecified severity, without behavioral disturbance, psychotic disturbance, mood disturbance, and anxiety; R13.12 Dysphagia, oropharyngeal phase
CPT/HCPCS: 36415; 80048; 84550; 85027

== ENCOUNTER → 2021-03-06 05:00 | Outpatient (REF) | payer MEDICARE, OTHER, SELFPAY ==
[2020-07-24 11:11] VITALS: BMI 34.7
[2021-03-06 07:48] LABS: Uric Acid 2.9 mg/dL (2.6-6.0)
== END ==
LOC: OLS.WHLCAR 05:00
PROVIDERS: PCP Family Medicine; Visit Provider Family Medicine
DX: R48.8 Other symbolic dysfunctions (principal); U07.1 COVID-19; I50.32 Chronic diastolic (congestive) heart failure; L89.154 Pressure ulcer of sacral region, stage 4; F03.90 Unspecified dementia, unspecified severity, without behavioral disturbance, psychotic disturbance, mood disturbance, and anxiety; R13.12 Dysphagia, oropharyngeal phase
CPT/HCPCS: 36415; 84550

== ENCOUNTER → 2021-05-14 05:00 | Outpatient (REF) | payer MEDICARE, OTHER, SELFPAY ==
[2020-07-24 11:11] VITALS: BMI 34.7
[2021-05-14 07:45] LABS: Hematocrit 28.2 % (37-47); Hemoglobin 8.5 g/dL (12.0-15.0); Mean Corp Hgb Conc 30.1 g/dL (32-36); Mean Corpuscular Hgb 30.4 pg (27.0-32.0); Mean Corpuscular Volume 100.7 fL (81-99); Mean Platelet Vol. 10.2 fl (6.2-12.0); Platelet Count 155 K/mm3 (150-450); RBC Distribution Width CV 13.6 % (11.6-14.6); White Blood Count 6.6 K/mm3 (4.4-11.0)
[2021-05-14 07:57] LABS: Anion Gap 1 (5-15); BUN 13 mg/dL (7-18); BUN/Creat Ratio 23.2 RATIO (10-20); Calcium,Total 9.8 mg/dL (8.5-10.1); Chloride 108 mmol/L (98-107); Creatinine, Serum 0.56 mg/dL (0.55-1.02); EST Glomerular Filtration Rate 109 mL/min (>60); Est Glom Filt Rate - Afr Amer 132 mL/min (>60); Glucose 85 mg/dL (74-106); Potassium 3.4 mmol/L (3.5-5.1); Sodium Level 143 mmol/L (136-145)
== END ==
LOC: OLS.WHLCAR 05:00
PROVIDERS: PCP Family Medicine; Visit Provider Family Medicine
DX: I50.32 Chronic diastolic (congestive) heart failure (principal); L89.154 Pressure ulcer of sacral region, stage 4; F03.90 Unspecified dementia, unspecified severity, without behavioral disturbance, psychotic disturbance, mood disturbance, and anxiety; R13.12 Dysphagia, oropharyngeal phase; R62.7 Adult failure to thrive
CPT/HCPCS: 36415; 80048; 85027

== ENCOUNTER → 2021-05-18 05:00 | Outpatient (REF) | payer SELFPAY ==
[2020-07-24 11:11] VITALS: BMI 34.7
[2021-05-18 09:19] LABS: Hematocrit 24.5 % (37-47); Hemoglobin 7.6 g/dL (12.0-15.0); Mean Corpuscular Hgb 30.6 pg (27.0-32.0); Mean Corpuscular Volume 98.8 fL (81-99); Mean Platelet Vol. 10.4 fl (6.2-12.0); Platelet Count 169 K/mm3 (150-450); RBC Distribution Width SD 50.8 fl (35.1-43.9); Red Blood Count 2.48 M/mm3 (4.2-5.4); White Blood Count 7.6 K/mm3 (4.4-11.0)
== END ==
LOC: OLS.WHLCAR 05:00
PROVIDERS: PCP Family Medicine; Visit Provider Family Medicine
DX: F03.90 Unspecified dementia, unspecified severity, without behavioral disturbance, psychotic disturbance, mood disturbance, and anxiety (principal); I50.32 Chronic diastolic (congestive) heart failure; L89.154 Pressure ulcer of sacral region, stage 4; R13.12 Dysphagia, oropharyngeal phase; R62.7 Adult failure to thrive
CPT/HCPCS: 36415; 85027

== ENCOUNTER → 2021-06-05 04:30 | Outpatient (REF) | payer OTHER, MEDICARE, SELFPAY ==
[2020-07-24 11:11] VITALS: BMI 34.7
[2021-06-05 07:15] LABS: Absolute Lymphocyte Count 3.73 X10^3/uL (0.83-4.51); Absolute Neutrophil Count 3.4 X10^3/uL (2.0-7.7); Basophil# 0.03 X10^3/uL; Basophil% 0.4 % (0-1); Eosinophils% 3.7 % (0-5); Hematocrit 29.1 % (37-47); Lymphocyte # 3.73 X10^3/ul (0.83-4.51); Lymphocyte % 45.5 % (19-41); Mean Corp Hgb Conc 30.9 g/dL (32-36); Mean Corpuscular Hgb 30.1 pg (27.0-32.0); Mean Corpuscular Volume 97.3 fL (81-99); Mean Platelet Vol. 9.8 fl (6.2-12.0); Monocyte% 8.5 % (0-10); NRBC Flagged by Analyzer 0 % (0-5); Neutrophil # 3.41 X10^3/uL (2.7-7.7); Neutrophil % 41.5 % (47-70); Platelet Count 200 K/mm3 (150-450); RBC Distribution Width CV 13.7 % (11.6-14.6); RBC Distribution Width SD 48.8 fl (35.1-43.9); Red Blood Count 2.99 M/mm3 (4.2-5.4); White Blood Count 8.2 K/mm3 (4.4-11.0)
[2021-06-05 07:43] LABS: Anion Gap 5 (5-15); BUN 9 mg/dL (7-18); BUN/Creat Ratio 14.6 RATIO (10-20); Calcium,Total 9.7 mg/dL (8.5-10.1); Chloride 107 mmol/L (98-107); Creatinine, Serum 0.62 mg/dL (0.55-1.02); EST Glomerular Filtration Rate 97 mL/min (>60); Est Glom Filt Rate - Afr Amer 118 mL/min (>60); Glucose 95 mg/dL (74-106); Potassium 3.3 mmol/L (3.5-5.1); Sodium Level 143 mmol/L (136-145); Uric Acid 4.4 mg/dL (2.6-6.0)
== END ==
LOC: OLS.WHLCAR 04:30
PROVIDERS: PCP Family Medicine; Visit Provider Family Medicine
DX: M1A.00X0 Idiopathic chronic gout, unspecified site, without tophus (tophi) (principal); I50.32 Chronic diastolic (congestive) heart failure; L89.154 Pressure ulcer of sacral region, stage 4; F03.90 Unspecified dementia, unspecified severity, without behavioral disturbance, psychotic disturbance, mood disturbance, and anxiety; R13.12 Dysphagia, oropharyngeal phase; R62.7 Adult failure to thrive; I10 Essential (primary) hypertension
CPT/HCPCS: 36415; 80048; 84550; 85025

== ENCOUNTER 2021-07-01 11:29 | Emergency (ER) | payer MEDICARE, OTHER, SELFPAY ==
[2021-07-01 11:30] VITALS: BP 146/87; PULSE 101; RESP 18; TEMP 37.2; O2SAT 99; BMI 22.0
[2021-07-01 11:34] VITALS: BP 146/87; PULSE 101; RESP 18; TEMP 37.2; O2SAT 99
--- NOTE | 2021-07-01 12:07 | RAD_ITS ---
STUDY: X-RAY - PELVIS REASON FOR EXAM: Female, 85 years old. Pain after trauma TECHNIQUE: One view of the pelvis was obtained. COMPARISON: 09/11/2020 FINDINGS: There is a non-specific bowel gas pattern. Normal visualized soft tissue structures. There is diffuse demineralization of the osseous structures. There is narrowing with cortical sclerosis and osteophyte formation of the sacroiliac joint consistent with degenerative osteoarthritic changes. Normal visualized bilateral superior and inferior pubic rami. Normal pubic symphysis. Normal ischial tuberosities. Normal visualized right femoral head. Normal right acetabulum. There is mild articular joint space narrowing of the right hip. Surgical hardware in the left femur is intact and free of complication. No significant change in its appearance since the previous study. Stable diffuse vascular calcifications RAD/Pelvis 1 or 2 Views IMPRESSION: Age consistent degenerative changes, no acute findings Surgical hardware in the left femur free of complication Electronically Signed: Stanley Cordova MD at 13:03 EDT , Service support ,
--- NOTE | 2021-07-01 12:13 | EDS_ITS ---
HPI HPI - Fall History of Present Illness Chief Complaint: Fall Informant: EMS and SNF Occured/Mechanism Occurred: Today Narrative: Patient fell out of bed. Patient was found on the floor this morning next to her bed. Usually ambulates: Non-Ambulatory Associated Symptoms Associated Symptoms: Positive for Weakness Narrative Narrative: Patient presents after a fall that occurred today. Patient was found this morning laying beside her bed. Patient has a history of dementia and is a poor historian. Staff states patient likely fell out of bed. Patient is on hospice. It is unclear if she hit her head or had any loss of consciousness. PFSH PFS Medical History Anxiety Congestive heart failure (CHF) Dementia Depression Diabetes Gout Hypertension Pressure ulcer of sacral region Home Medications allopurinol 300 mg PO DAILY 05/31/20 [History Last Taken 05/31/20] sennosides-docusate sodium 2 tab PO BID PRN PRN #1 tab 06/04/20 [Rx Last Taken Unknown] acetaminophen 500 mg tablet 1,000 mg PO Q8H PRN tab 06/17/20 [History Last Taken Unknown] oxycodone 5 mg tablet 5 mg PO TID PRN 06/17/20 [History Last Taken Unknown] Lactobacillus rhamnosus GG [Culturelle] 1 cap PO DAILY 07/01/21 [History Last Taken Unknown] acetic acid 1 irrig IRRIGATION 07/01/21 [History Last Taken Unknown] loperamide [Imodium A-D] 2 mg PO Q4H PRN 07/01/21 [History Last Taken Unknown] lorazepam [Ativan] 0.5 mg PO TID PRN 07/01/21 [History Last Taken Unknown] mirtazapine 7.5 mg PO QHS 07/01/21 [History Last Taken Unknown] omeprazole 20 mg PO DAILY 07/01/21 [History Last Taken Unknown] ondansetron HCl [Zofran] 4 mg PO Q6H PRN 07/01/21 [History Last Taken Unknown] Allergy/AdvReac Type Severity Reaction Status Date / Time Penicillins Allergy Rash Verified 07/01/21 11:30 Family History (Updated 06/17/20 @ 10:49 by Daija Bell) Father Cancer Mother Heart disease Social History Smoking Status: Never smoker alcohol intake: never what type of physical activity do you participate in: none ROS ROS ED Review of Systems ROS Unobtainable: due to mental status EXAM Physical Exam Const Vital Signs: 07/01/21 11:30 07/01/21 11:34 07/01/21 11:50 Temperature 98.9 F 98.9 F Temperature Source Temporal Temporal Pulse Rate 101 H 101 H Respiratory Rate 18 18 Respiratory Effort Normal Non-Labored Respiratory Depth Normal Respiratory Pattern Normal Blood Pressure 146/87 H 146/87 H Blood Pressure Mean 106 106 Pulse Ox 99 99 Oxygen Delivery Method Room Air Room Air Room Air Positive well nourished, well developed and cachectic General Appearance ED: well developed and cachectic Nutritional Appearance: cachectic HEENT Reports normocephalic atraumatic Neck full ROM and supple Chest Wall inspection of chest normal and palpation of chest normal Resp normal respiratory effort and clear to auscultation bilaterally Cardio regular rate and regular rhythm GI non-tender and non-distended Auscultation: normoactive bowel sounds Palpation: soft Extremity Extremity Narrative: There is tenderness over the hips bilaterally. There is no edema or ecchymosis. There is no obvious deformity noted. Range of motion was limited in all motions of the hips secondary to pain. Pedal pulses are equal bilaterally. There are no apparent sensory deficits noted. Neuro CN's II-XII intact bilaterally, no focal motor deficits and no sensory deficits noted Sensorium / Orientation: alert, oriented to person, orientation impaired and confused; Negative for oriented to place or oriented to time MDM MDM MDM Narrative Medical decision making narrative: X-rays of the pelvis were obtained. There is 1 view. On my interpretation, there is no acute fracture. There is a nonunion of the left femoral neck fracture. There is hardware in place. Radiologist also reviewed the x-rays and agrees. Family does not want any further intervention done. Family did not want any head CT obtained. Patient will be discharged back to hospice. Family was agreeable with the plan. Discharge Plan Triage Chief Complaint: Fall ED Provider: Gerardo An Dx/Rx/DC Orders Clinical Impression: Fall Instructions: ED Fall Prevention Prescriptions: No Action oxycodone 5 mg tablet 5 mg PO TID PRN (Reason: Pain) RF: 0 acetaminophen 500 mg tablet 1,000 mg PO Q8H PRN (Reason: Pain) RF: 0 allopurinol 300 MG tablet 300 mg PO DAILY RF: 0 sennosides-docusate sodium 1 TABLET tablet 2 tab PO BID PRN PRN (Reason: Constipation) Qty: 1 RF: 0 ondansetron HCl [Zofran] 4 mg Tablet 4 mg PO Q6H PRN (Reason: Nausea) RF: 0 loperamide [Imodium A-D] 2 mg Tablet 2 mg PO Q4H PRN (Reason: Diarrhea) RF: 0 lorazepam [Ativan] 0.5 mg Tablet 0.5 mg PO TID PRN (Reason: Anxiety) RF: 0 acetic acid 0.25 % Solution 1 irrig IRRIGATION RF: 0 mirtazapine 7.5 mg Tablet 7.5 mg PO QHS RF: 0 omeprazole 20 mg Tablet,Delayed Release (Dr/Ec) 20 mg PO DAILY RF: 0 Culturelle 15 billion cell Capsule, Sprinkle 1 cap PO DAILY RF: 0 Primary Care Provider: Annie Garcia Referrals: Annie Garcia DO [Primary Care Provider] - 1-2 Weeks Disposition Disposition: Retirement Facility Discharge Location: Other SNF not listed
[2021-07-01 13:09] VITALS: BP 165/80; PULSE 84; RESP 16; O2SAT 95
--- NOTE | 2021-07-01 13:11 | ED.RN ---
PTS DAUGHTER CONTACTED ABOUT NEGATIVE RESULTS. PT WILL GO BACK TO [facility]
== END 2021-07-01 14:31 | disposition skilled nursing facility (03) ==
PROVIDERS: Emergency Provider Emergency Medicine; PCP Family Medicine
DX: S72.002K Fracture of unspecified part of neck of left femur, subsequent encounter for closed fracture with nonunion (principal); F03.90 Unspecified dementia, unspecified severity, without behavioral disturbance, psychotic disturbance, mood disturbance, and anxiety; F41.9 Anxiety disorder, unspecified; F32.9 Major depressive disorder, single episode, unspecified; E11.9 Type 2 diabetes mellitus without complications; I11.0 Hypertensive heart disease with heart failure; I50.9 Heart failure, unspecified; Z79.899 Other long term (current) drug therapy; W06.XXXD Fall from bed, subsequent encounter
CPT/HCPCS: 72170; 99284